=== PATIENT | male | born 1975 | race Caucasian/White ===

== ENCOUNTER → 2016-08-09 | Outpatient (REF) | payer OTHER ==
[~2016-08-09] MED LIST: BACL10TA PO; CALC500C16 PO; MAPA325T2 PO; NICO21PAT TD; PANT40TA2 PO; PRED20TAB PO
[2016-08-09 12:37] LABS: VITAMIN B12 LEVEL 707 PG/ML
[2016-08-09 12:38] LABS: FOLATE 8.1 NG/ML
[2016-08-09 13:05] LABS: ALBUMIN 4.1 GM/DL (3.2-5.2); ALBUMIN/GLOBULIN RATIO 1.46 (1.00-1.93); ALKALINE PHOSPHATASE 57 U/L (45-117); ALT/SGPT 35 U/L (12-78); ANION GAP 8 MEQ/L (8-16); AST/SGOT 18 U/L (15-37); BILIRUBIN,TOTAL 0.5 MG/DL (0.2-1.0); BLOOD UREA NITROGEN 18 MG/DL (7-18); CALCIUM LEVEL 8.9 MG/DL (8.5-10.1); CARBON DIOXIDE LEVEL 26 MEQ/L (21-32); CHLORIDE LEVEL 107 MEQ/L (98-107); CREATININE FOR GFR 1.01 MG/DL (0.70-1.30); GLOMERULAR FILTRATION RATE > 60.0 (>60); GLUCOSE, FASTING 92 MG/DL (70-105); POTASSIUM SERUM 4.4 MEQ/L (3.5-5.1); SODIUM LEVEL 141 MEQ/L (136-145); TOTAL PROTEIN 6.9 GM/DL (6.4-8.2)
[2016-08-09 13:12] LABS: BASO % 0.3 % (0.0-1.0); EOS # 0.3 K/mm3 (0.0-0.50); EOS % 2.8 % (0.0-3.0); LARGE UNSTAINED CELL # 0.1 K/mm3 (0.0-0.4); LARGE UNSTAINED CELL % 0.9 % (0.0-4.0); LYMPH # 1.3 K/mm3 (1.5-4.5); LYMPH % 11.3 % (24.0-44.0); MEAN CORPUSCULAR HEMOGLOBIN 31.6 pg (27.0-33.0); MEAN CORPUSCULAR HGB CONC 34.6 g/dl (32.0-36.5); MEAN CORPUSCULAR VOLUME 91.5 fl (80.0-96.0); MONO # 0.6 K/mm3 (0.0-0.8); MONO % 5.3 % (0.0-5.0); NEUTROPHILS # 9.1 K/mm3 (1.8-7.7); NEUTROPHILS % 79.4 % (36.0-66.0); PLATELET COUNT, AUTOMATED 258 k/mm3 (150-450); RED CELL DISTRIBUTION WIDTH 12.5 % (11.5-14.5); WHITE BLOOD COUNT 11.4 K/mm3 (4.0-10.0)
== END ==
LOC: M LABNEURO 11:48
PROVIDERS: ATTEND Psychiatry & Neurology Neurology
DX: G35 Multiple sclerosis (principal)

== ENCOUNTER → 2017-03-14 | Outpatient (REF) | payer OTHER ==
[~2017-03-14] MED LIST changes: -BACL10TA PO; +BACL1TAB8 PO
[2017-03-14 17:40] LABS: BASO # 0.1 10^3/uL (0.0-0.2); BASO % 0.6 % (0.0-1.0); EOS # 0.3 10^3/uL (0.0-0.50); EOS % 4.3 % (0.0-3.0); IMMATURE GRANULOCYTE % 0.9 % (0-0); LYMPH # 1.7 10^3/uL (1.5-4.5); LYMPH % 21.1 % (24.0-44.0); MEAN CORPUSCULAR HEMOGLOBIN 31.1 pg (27.0-33.0); MEAN CORPUSCULAR HGB CONC 33.4 g/dl (32.0-36.5); MONO # 0.5 10^3/uL (0.0-0.8); MONO % 6.2 % (0.0-5.0); NEUTROPHILS # 5.3 10^3/uL (1.8-7.7); NEUTROPHILS % 66.9 % (36.0-66.0); PLATELET COUNT, AUTOMATED 268 10^3/uL (150-450); WHITE BLOOD COUNT 7.9 10^3/uL (4.0-10.0)
[2017-03-14 19:30] LABS: ALBUMIN 3.9 GM/DL (3.2-5.2); ALBUMIN/GLOBULIN RATIO 1.39 (1.00-1.93); ALKALINE PHOSPHATASE 84 U/L (45-117); ALT/SGPT 41 U/L (12-78); ANION GAP 5 MEQ/L (8-16); AST/SGOT 19 U/L (15-37); BILIRUBIN,TOTAL 0.4 MG/DL (0.2-1.0); BLOOD UREA NITROGEN 12 MG/DL (7-18); CARBON DIOXIDE LEVEL 27 MEQ/L (21-32); CHLORIDE LEVEL 109 MEQ/L (98-107); CREATININE FOR GFR 0.93 MG/DL (0.70-1.30); GLOMERULAR FILTRATION RATE > 60.0 (>60); GLUCOSE, FASTING 102 MG/DL (70-105); POTASSIUM SERUM 3.9 MEQ/L (3.5-5.1); SODIUM LEVEL 141 MEQ/L (136-145); TOTAL PROTEIN 6.7 GM/DL (6.4-8.2)
== END ==
LOC: M LABNEURO 11:48
PROVIDERS: ATTEND Psychiatry & Neurology Neurology
DX: G35 Multiple sclerosis (principal)

== ENCOUNTER → 2017-09-11 | Outpatient (REF) | payer OTHER ==
[2017-09-11 18:23] LABS: BASO # 0.1 10^3/uL (0.0-0.2); BASO % 0.9 % (0.0-1.0); EOS # 0.3 10^3/uL (0.0-0.50); EOS % 5.5 % (0.0-3.0); HEMATOCRIT 46.2 % (42.0-52.0); HEMOGLOBIN 15.6 g/dl (13.5-17.5); IMMATURE GRANULOCYTE % 0.5 % (0-3.0); LYMPH # 1.8 10^3/uL (1.5-4.5); LYMPH % 30.8 % (24.0-44.0); MEAN CORPUSCULAR HEMOGLOBIN 31.3 pg (27.0-33.0); MEAN CORPUSCULAR HGB CONC 33.8 g/dl (32.0-36.5); MEAN CORPUSCULAR VOLUME 92.8 fl (80.0-96.0); MONO # 0.5 10^3/uL (0.0-0.8); MONO % 8.3 % (0.0-5.0); NEUTROPHILS # 3.1 10^3/uL (1.8-7.7); PLATELET COUNT, AUTOMATED 276 10^3/uL (150-450); RED BLOOD COUNT 4.98 10^6/uL (4.30-6.10); RED CELL DISTRIBUTION WIDTH 12.4 % (11.5-14.5); WHITE BLOOD COUNT 5.8 10^3/uL (4.0-10.0)
[2017-09-11 18:44] LABS: ALBUMIN 4.2 GM/DL (3.2-5.2); ALKALINE PHOSPHATASE 72 U/L (45-117); ALT/SGPT 40 U/L (12-78); ANION GAP 4 MEQ/L (8-16); AST/SGOT 20 U/L (7-37); BILIRUBIN,TOTAL 0.5 MG/DL (0.2-1.0); BLOOD UREA NITROGEN 13 MG/DL (7-18); CALCIUM LEVEL 8.8 MG/DL (8.5-10.1); CARBON DIOXIDE LEVEL 29 MEQ/L (21-32); CHLORIDE LEVEL 109 MEQ/L (98-107); CREATININE FOR GFR 0.98 MG/DL (0.70-1.30); GLOMERULAR FILTRATION RATE > 60.0 (>60); GLUCOSE, FASTING 75 MG/DL (70-100); POTASSIUM SERUM 4.2 MEQ/L (3.5-5.1); SODIUM LEVEL 142 MEQ/L (136-145); TOTAL PROTEIN 7.2 GM/DL (6.4-8.2); VITAMIN B12 LEVEL 535 PG/ML
[2017-09-11 18:45] LABS: FOLATE 12.2 NG/ML
== END ==
LOC: M LABNEURO 11:59
DX: G35 Multiple sclerosis (principal)

== ENCOUNTER → 2018-02-15 | Outpatient (REF) | payer OTHER ==
[2018-02-15 18:32] LABS: BASO # 0.1 10^3/uL (0.0-0.2); BASO % 0.5 % (0.0-1.0); EOS # 0.4 10^3/uL (0.0-0.50); EOS % 2.9 % (0.0-3.0); HEMATOCRIT 45.3 % (42.0-52.0); HEMOGLOBIN 15.3 g/dl (13.5-17.5); IMMATURE GRANULOCYTE % 0.5 % (0-3.0); LYMPH # 2.4 10^3/uL (1.5-4.5); LYMPH % 17.9 % (24.0-44.0); MEAN CORPUSCULAR HEMOGLOBIN 31.1 pg (27.0-33.0); MEAN CORPUSCULAR HGB CONC 33.8 g/dl (32.0-36.5); MEAN CORPUSCULAR VOLUME 92.1 fl (80.0-96.0); MONO # 1.1 10^3/uL (0.0-0.8); MONO % 8.1 % (0.0-5.0); NEUTROPHILS # 9.3 10^3/uL (1.8-7.7); NEUTROPHILS % 70.1 % (36.0-66.0); PLATELET COUNT, AUTOMATED 269 10^3/uL (150-450); RED BLOOD COUNT 4.92 10^6/uL (4.30-6.10); RED CELL DISTRIBUTION WIDTH 12.3 % (11.5-14.5); WHITE BLOOD COUNT 13.3 10^3/uL (4.0-10.0)
== END ==
LOC: M SFHCPLAZ 15:29
DX: R10.31 Right lower quadrant pain (principal)

== ENCOUNTER 2018-02-16 15:36 | Emergency (ER) | payer OTHER ==
[2018-02-16] MEDS: NS 1,000 ML IV (17:14)
[2018-02-16 17:20] LABS: BASO # 0.1 10^3/uL (0.0-0.2); BASO % 0.6 % (0.0-1.0); EOS # 0.3 10^3/uL (0.0-0.50); EOS % 3.6 % (0.0-3.0); HEMATOCRIT 45.9 % (42.0-52.0); HEMOGLOBIN 15.6 g/dl (13.5-17.5); IMMATURE GRANULOCYTE % 0.5 % (0-3.0); LYMPH # 2.2 10^3/uL (1.5-4.5); LYMPH % 27.4 % (24.0-44.0); MEAN CORPUSCULAR HEMOGLOBIN 31.4 pg (27.0-33.0); MEAN CORPUSCULAR VOLUME 92.4 fl (80.0-96.0); MONO # 0.8 10^3/uL (0.0-0.8); MONO % 10.2 % (0.0-5.0); NEUTROPHILS # 4.7 10^3/uL (1.8-7.7); NEUTROPHILS % 57.7 % (36.0-66.0); PLATELET COUNT, AUTOMATED 248 10^3/uL (150-450); RED BLOOD COUNT 4.97 10^6/uL (4.30-6.10); RED CELL DISTRIBUTION WIDTH 12.2 % (11.5-14.5); WHITE BLOOD COUNT 8.1 10^3/uL (4.0-10.0)
[2018-02-16 17:45] LABS: ALBUMIN 3.9 GM/DL (3.2-5.2); ALBUMIN/GLOBULIN RATIO 1.26 (1.00-1.93); ALKALINE PHOSPHATASE 65 U/L (45-117); ALT/SGPT 30 U/L (12-78); ANION GAP 8 MEQ/L (8-16); AST/SGOT 16 U/L (7-37); BILIRUBIN,TOTAL 0.5 MG/DL (0.2-1.0); BLOOD UREA NITROGEN 11 MG/DL (7-18); CALCIUM LEVEL 8.5 MG/DL (8.5-10.1); CARBON DIOXIDE LEVEL 25 MEQ/L (21-32); CHLORIDE LEVEL 105 MEQ/L (98-107); CREATININE FOR GFR 1.04 MG/DL (0.70-1.30); GLOMERULAR FILTRATION RATE > 60.0 (>60); GLUCOSE, FASTING 85 MG/DL (70-100); POTASSIUM SERUM 4.1 MEQ/L (3.5-5.1); SODIUM LEVEL 138 MEQ/L (136-145)
== END 2018-02-16 19:25 | disposition home or self-care (01) ==
LOC: M ED 15:36
DX: K52.9 Noninfective gastroenteritis and colitis, unspecified (principal); R10.9 Unspecified abdominal pain; R51 Headache; K21.9 Gastro-esophageal reflux disease without esophagitis; Z72.0 Tobacco use; Z79.899 Other long term (current) drug therapy
CPT/HCPCS: 80053

== ENCOUNTER → 2018-02-16 | Outpatient (REF) | payer OTHER ==
[2018-02-16 13:09] LABS: ALBUMIN/GLOBULIN RATIO 1.21 (1.00-1.93); ALKALINE PHOSPHATASE 71 U/L (45-117); ALT/SGPT 31 U/L (12-78); AMYLASE 70 U/L (25-115); ANION GAP 9 MEQ/L (8-16); AST/SGOT 20 U/L (7-37); BILIRUBIN,TOTAL 0.6 MG/DL (0.2-1.0); BLOOD UREA NITROGEN 11 MG/DL (7-18); CALCIUM LEVEL 8.4 MG/DL (8.5-10.1); CARBON DIOXIDE LEVEL 28 MEQ/L (21-32); CHLORIDE LEVEL 104 MEQ/L (98-107); CREATININE FOR GFR 1.09 MG/DL (0.70-1.30); GLOMERULAR FILTRATION RATE > 60.0 (>60); GLUCOSE, FASTING 78 MG/DL (70-100); LIPASE 412 U/L (73-393); POTASSIUM SERUM 4.4 MEQ/L (3.5-5.1); SODIUM LEVEL 141 MEQ/L (136-145); TOTAL PROTEIN 7.3 GM/DL (6.4-8.2)
== END ==
LOC: M SFHCPLAZ 09:57 → M SFHCADAM 09:59
DX: R10.31 Right lower quadrant pain (principal)

== ENCOUNTER → 2018-02-16 | Outpatient (CLI) | payer OTHER ==
[~2018-02-16] MED LIST changes: -BACL1TAB8 PO; -CALC500C16 PO; +GASTROGRAFIN SOLUTION 30ML (Q9963) As Ordered; +ISOVUE-370 76% 100ML VIAL (Q9967) As Ordered; -MAPA325T2 PO; -NICO21PAT TD; -PANT40TA2 PO; -PRED20TAB PO
== END ==
LOC: M RAD 12:19
DX: R10.31 Right lower quadrant pain (principal)
CPT/HCPCS: Q9963

== ENCOUNTER → 2018-02-21 | Outpatient (REF) | payer OTHER ==
[2018-02-21 17:52] LABS: BASO # 0.1 10^3/uL (0.0-0.2); BASO % 0.6 % (0.0-1.0); EOS # 0.4 10^3/uL (0.0-0.50); EOS % 4.4 % (0.0-3.0); HEMATOCRIT 42.4 % (42.0-52.0); HEMOGLOBIN 14.5 g/dl (13.5-17.5); IMMATURE GRANULOCYTE % 0.6 % (0-3.0); LYMPH # 2.5 10^3/uL (1.5-4.5); LYMPH % 26.5 % (24.0-44.0); MEAN CORPUSCULAR HEMOGLOBIN 31.5 pg (27.0-33.0); MEAN CORPUSCULAR HGB CONC 34.2 g/dl (32.0-36.5); MONO # 0.7 10^3/uL (0.0-0.8); MONO % 7.7 % (0.0-5.0); NEUTROPHILS # 5.6 10^3/uL (1.8-7.7); NEUTROPHILS % 60.2 % (36.0-66.0); PLATELET COUNT, AUTOMATED 289 10^3/uL (150-450); RED BLOOD COUNT 4.61 10^6/uL (4.30-6.10); RED CELL DISTRIBUTION WIDTH 12.3 % (11.5-14.5); WHITE BLOOD COUNT 9.3 10^3/uL (4.0-10.0)
== END ==
LOC: M SFHCPLAZ 15:30
DX: K35.3 Acute appendicitis with localized peritonitis (principal)

== ENCOUNTER → 2018-06-08 | Outpatient (REF) | payer MEDICARE, OTHER ==
[~2018-06-08] MED LIST changes: +BACL1TAB8 PO; +CALC500C16 PO; +CIPR-249 PO; +FLAG500T PO; -GASTROGRAFIN SOLUTION 30ML (Q9963) As Ordered; -ISOVUE-370 76% 100ML VIAL (Q9967) As Ordered; +MAPA325T2 PO; +NICO21PAT TD; +PANT40TA3 PO; +PRED20TAB PO
== END ==
LOC: M SMT 17:22
PROVIDERS: ATTEND Dermatology
DX: C44.321 Squamous cell carcinoma of skin of nose (principal); L72.3 Sebaceous cyst
CPT/HCPCS: 11102; 11441; 12051; 88304; 88305; G0463

== ENCOUNTER → 2018-09-26 | Outpatient (REF) | payer MEDICARE, OTHER ==
[~2018-09-26] MED LIST changes: +NICO21DI3 TD; -NICO21PAT TD
[2018-09-26 15:26] LABS: BASO # 0.1 10^3/uL (0.0-0.2); BASO % 0.9 % (0.0-1.0); EOS # 0.4 10^3/uL (0.0-0.50); EOS % 5.7 % (0.0-3.0); HEMATOCRIT 45.8 % (42.0-52.0); HEMOGLOBIN 15.4 g/dl (13.5-17.5); LYMPH % 29.8 % (24.0-44.0); MEAN CORPUSCULAR HEMOGLOBIN 31.5 pg (27.0-33.0); MEAN CORPUSCULAR HGB CONC 33.6 g/dl (32.0-36.5); MEAN CORPUSCULAR VOLUME 93.7 fl (80.0-96.0); MONO # 0.4 10^3/uL (0.0-0.8); MONO % 5.4 % (0.0-5.0); NEUTROPHILS # 3.9 10^3/uL (1.8-7.7); NEUTROPHILS % 57.8 % (36.0-66.0); PLATELET COUNT, AUTOMATED 285 10^3/uL (150-450); RED BLOOD COUNT 4.89 10^6/uL (4.30-6.10); WHITE BLOOD COUNT 6.8 10^3/uL (4.0-10.0)
[2018-09-26 15:36] LABS: ALBUMIN 3.9 GM/DL (3.2-5.2); ALT/SGPT 39 U/L (12-78); BILIRUBIN,TOTAL 0.4 MG/DL (0.2-1.0); BLOOD UREA NITROGEN 13 MG/DL (7-18); CALCIUM LEVEL 8.6 MG/DL (8.5-10.1); CARBON DIOXIDE LEVEL 28 MEQ/L (21-32); CHLORIDE LEVEL 110 MEQ/L (98-107); CREATININE FOR GFR 0.98 MG/DL (0.70-1.30); GLOMERULAR FILTRATION RATE > 60.0 (>60); GLUCOSE, FASTING 104 MG/DL (70-100); POTASSIUM SERUM 4.6 MEQ/L (3.5-5.1); SODIUM LEVEL 141 MEQ/L (136-145); TOTAL PROTEIN 7.1 GM/DL (6.4-8.2)
[2018-09-26 15:58] LABS: HEPATITIS B SURFACE ANTIBODY NEGATIVE (POSITIVE)
== END ==
LOC: M LABNEURO 11:29
PROVIDERS: ATTEND Psychiatry & Neurology Neurology
DX: G35 Multiple sclerosis (principal)

== ENCOUNTER 2018-10-04 09:37 | Outpatient (CLI) | payer MEDICARE, OTHER ==
[~2018-10-04] VITALS: Ht 180.3 cm; Wt 111.3 kg
[2018-10-04] VITALS (7 sets, daily range): BP systolic 97–122; BP diastolic 55–79
[2018-10-04] MEDS ORDERED: diphenhydrAMINE 25 MG CAP PO ONE (09:45)
[2018-10-04] MEDS ORDERED: ACETAMINOPHEN TAB 650MG DOSE (2X325MG) PO ONE (09:45)
[2018-10-04] MEDS ORDERED: methylPREDNISolone INJ 125 MG/2 ML VIAL (J2930) IV ONE (09:45)
[2018-10-04] MEDS ORDERED: 0.22 MICRON FILTER (METHACHOLINE/OCREVUS) XX ONE (10:00)
[2018-10-04] MEDS ORDERED: OCRELIZUMAB 600 MG in NS 500 ML IV ONE (10:00)
== END 2018-10-04 14:30 | disposition home or self-care (01) ==
LOC: M INFU 09:37
PROVIDERS: ATTEND Psychiatry & Neurology Neurology
DX: G35 Multiple sclerosis (principal)
CPT/HCPCS: 96375; 96413; 96415; J2350; J2930

== ENCOUNTER → 2019-01-16 | Outpatient (REF) | payer MEDICARE ==
[2019-01-16 13:58] LABS: BASO # 0.1 10^3/uL (0.0-0.2); EOS # 0.3 10^3/uL (0.0-0.50); EOS % 4.7 % (0.0-3.0); HEMATOCRIT 47.2 % (42.0-52.0); HEMOGLOBIN 15.9 g/dl (13.5-17.5); LYMPH # 1.7 10^3/uL (1.5-4.5); LYMPH % 25.1 % (24.0-44.0); MEAN CORPUSCULAR HEMOGLOBIN 31.8 pg (27.0-33.0); MEAN CORPUSCULAR HGB CONC 33.7 g/dl (32.0-36.5); MEAN CORPUSCULAR VOLUME 94.4 fl (80.0-96.0); MONO # 0.6 10^3/uL (0.0-0.8); MONO % 9.4 % (0.0-5.0); NEUTROPHILS % 59.2 % (36.0-66.0); PLATELET COUNT, AUTOMATED 286 10^3/uL (150-450); WHITE BLOOD COUNT 6.8 10^3/uL (4.0-10.0)
[2019-01-16 14:27] LABS: ALT/SGPT 31 U/L (12-78); BILIRUBIN,TOTAL 0.4 MG/DL (0.2-1.0); BLOOD UREA NITROGEN 15 MG/DL (7-18); CARBON DIOXIDE LEVEL 30 MEQ/L (21-32); CHLORIDE LEVEL 105 MEQ/L (98-107); CREATININE FOR GFR 1.14 MG/DL (0.70-1.30); GLOMERULAR FILTRATION RATE > 60.0 (>60); GLUCOSE, FASTING 85 MG/DL (70-100); POTASSIUM SERUM 4.2 MEQ/L (3.5-5.1); SODIUM LEVEL 141 MEQ/L (136-145); TOTAL PROTEIN 6.7 GM/DL (6.4-8.2)
[2019-01-16 14:36] LABS: APPEARANCE, URINE CLEAR (CLEAR); BACTERIA, URINE AUTO NEGATIVE (NEGATIVE); BILIRUBIN, URINE AUTO NEGATIVE (NEGATIVE); BLOOD, URINE BLOOD NEGATIVE (NEGATIVE); COLOR, URINE YELLOW (YELLOW); GLUCOSE, URINE (UA) AUTO NEGATIVE (NEGATIVE); KETONE, URINE AUTO NEGATIVE (NEGATIVE); LEUKOCYTE ESTERASE, URINE AUTO NEGATIVE (NEGATIVE); MUCUS, URINE SMALL (NEGATIVE); NITRITE, URINE AUTO NEGATIVE (NEGATIVE); PROTEIN, URINE AUTO NEGATIVE (NEGATIVE); RBC, URINE AUTO 1 /HPF (0-3); SPECIFIC GRAVITY URINE AUTO 1.019 (1.002-1.035); SQUAMOUS EPITHELIAL CELL UR AU 1 /HPF (0-6); UROBILINOGEN, URINE AUTO 0.2 mg/dL (0.0-2.0); WBC, URINE AUTO 2 /HPF (0-3)
== END ==
LOC: M LABNEURO 11:03
PROVIDERS: ATTEND Psychiatry & Neurology Neurology
DX: G35 Multiple sclerosis (principal); Z79.899 Other long term (current) drug therapy

== ENCOUNTER 2019-04-03 07:51 | Outpatient (CLI) | payer MEDICARE ==
[2019-04-03] VITALS (7 sets, daily range): BP systolic 109–127; BP diastolic 71–77
[~2019-04-03] VITALS: Ht 180.3 cm; Wt 124.5 kg
[2019-04-03] MEDS ORDERED: diphenhydrAMINE 25 MG CAP PO ONE (08:00)
[2019-04-03] MEDS ORDERED: ACETAMINOPHEN TAB 650MG DOSE (2X325MG) PO ONE (08:00)
[2019-04-03] MEDS ORDERED: 0.22 MICRON FILTER (METHACHOLINE/OCREVUS) XX ONE (08:00)
[2019-04-03] MEDS ORDERED: methylPREDNISolone INJ 125 MG/2 ML VIAL (J2930) IV ONE (08:00)
[2019-04-03] MEDS ORDERED: OCRELIZUMAB 600 MG in NS 500 ML IV ONE (08:15)
== END 2019-04-03 12:30 | disposition home or self-care (01) ==
LOC: M INFU 07:51
PROVIDERS: ATTEND Psychiatry & Neurology Neurology
DX: G35 Multiple sclerosis (principal)
CPT/HCPCS: 96365; 96366; 96375; J2350; J2930

== ENCOUNTER 2019-04-13 17:09 | Day surgery (SDC) | payer MEDICAID, MEDICARE ==
[~2019-04-13] VITALS: Ht 180.3 cm; Wt 114.3 kg
[2019-04-13] MEDS: KCL 20MEQ IN D5/0.45NS 1000ML 1,000 ML IV SCH (01:00)
[2019-04-13] MEDS ORDERED: OCRE300I IV (17:18)
[2019-04-13 17:38] LABS: BASO # 0.1 10^3/uL (0.0-0.2); BASO % 0.3 % (0.0-1.0); HEMATOCRIT 46.9 % (42.0-52.0); HEMOGLOBIN 15.6 g/dl (13.5-17.5); LYMPH # 0.9 10^3/uL (1.5-5.0); LYMPH % 3.7 % (24.0-44.0); MEAN CORPUSCULAR HEMOGLOBIN 31.2 pg (27.0-33.0); MEAN CORPUSCULAR HGB CONC 33.3 g/dl (32.0-36.5); MEAN CORPUSCULAR VOLUME 93.8 fl (80.0-96.0); MONO # 1.1 10^3/uL (0.0-0.8); MONO % 4.5 % (0.0-5.0); NEUTROPHILS # 22.3 10^3/uL (1.5-8.5); NEUTROPHILS % 90.7 % (36.0-66.0); PLATELET COUNT, AUTOMATED 320 10^3/uL (150-450); WHITE BLOOD COUNT 24.6 10^3/uL (4.0-10.0)
[2019-04-13] MEDS ORDERED: NS 1,000 ML IV ONE (18:15)
[2019-04-13] MEDS ORDERED: MORPHINE 4 MG/ML 1ML VIAL/SYRINGE (J2270) IV ONE ×2 (18:15→20:30)
[2019-04-13] MEDS ORDERED: ONDANSETRON 4MG/2ML VIAL (J2405) IV ONE (18:15)
[2019-04-13 18:18] LABS: ALBUMIN 4.1 GM/DL (3.2-5.2); ALT/SGPT 52 U/L (12-78); BILIRUBIN,DIRECT 0.2 MG/DL (0.0-0.2); BILIRUBIN,TOTAL 0.6 MG/DL (0.2-1.0); BLOOD UREA NITROGEN 13 MG/DL (7-18); CALCIUM LEVEL 9.5 MG/DL (8.5-10.1); CARBON DIOXIDE LEVEL 27 MEQ/L (21-32); CHLORIDE LEVEL 106 MEQ/L (98-107); CREATININE FOR GFR 1.18 MG/DL (0.70-1.30); GLOMERULAR FILTRATION RATE > 60.0 (>60); GLUCOSE, FASTING 110 MG/DL (70-100); LIPASE 89 U/L (73-393); POTASSIUM SERUM 4.1 MEQ/L (3.5-5.1); SODIUM LEVEL 140 MEQ/L (136-145); TOTAL PROTEIN 7.3 GM/DL (6.4-8.2)
[2019-04-13] MEDS ORDERED: ISOVUE-370 76% 100ML VIAL (Q9967) As Ordered ONE (18:26)
--- NOTE | 2019-04-13 19:23 | REPVR ---
PROCEDURE INFORMATION: Exam: CT Abdomen And Pelvis With Contrast Exam date and time: 04/13/2019 6:49 PM Clinical history: 43 years old, male; Abdominal pain; Localized; Right lower quadrant (rlq); Additional info: Rlq pain with n/v TECHNIQUE: Imaging protocol: Computed tomography of the abdomen and pelvis with intravenous contrast. Radiation optimization: All CT scans at this facility use at least one of these dose optimization techniques: automated exposure control; mA and/or kV adjustment per patient size (includes targeted exams where dose is matched to clinical indication); or iterative reconstruction. Contrast material: ISOVUE 370; Contrast volume: 100 ml; Contrast route: IV; COMPARISON: CT ABD PELVIS WITH CONTRAST 02/16/2018 2:11 PM FINDINGS: Liver: There is a diffuse decrease in hepatic parenchymal density, consistent with fatty infiltration. Gallbladder and bile ducts: Normal. No calcified stones. No ductal dilation. Pancreas: Normal. No ductal dilation. Spleen: Normal. No splenomegaly. Adrenals: Normal. No mass. Kidneys and ureters: 10 mm simple cyst left kidney. Stomach and bowel: Mild diffuse diverticulosis coli. No diverticulitis. Appendix: The appendix demonstrates diffuse distention, consistent with acute appendicitis. No CT evidence of acute rupture or abscess. Appendicolith demonstrated in the distal appendix. Intraperitoneal space: Unremarkable. No free air. No significant fluid collection. Vasculature: The aorta demonstrates mild atherosclerotic calcification. Lymph nodes: Unremarkable. No enlarged lymph nodes. Bladder: Unremarkable as visualized. Reproductive: The prostate gland demonstrates mild hyperplasia. Bones/joints: Unremarkable. No acute fracture. Soft tissues: Unremarkable. IMPRESSION: 1. There is a diffuse decrease in hepatic parenchymal density, consistent with fatty infiltration. 2. Acute appendicitis. 3. Mild prostatic hyperplasia. 4. Mild diffuse diverticulosis coli. No diverticulitis. A critical call has been made to speak with the ordering physician/practitioner. This report will be amended once consultation has occurred. COMMENT: Consistent with the [employer] [place] [employer]'s Incidental Findings Committee Report (J Am Erick Radiol 2010): Unless the patient's specific circumstances suggest otherwise, any liver lesion 0.5 cm or less, any cystic kidney lesion less than 1.0 cm, and/or any adrenal lesion 1.0 cm or less not otherwise characterized in this report as possessing suspicious or indeterminate imaging features is/are highly likely to be benign and do not require follow-up imaging or biopsy. Electronically signed by: Geovanni Lopez 04/13/2019 19:23:35 PM
[2019-04-13] MEDS ORDERED: BUPIVACAINE/EPIN 0.25% 30 ML VIAL As Ordered ONE (19:57)
[2019-04-13] MEDS ORDERED: OMEP-221 PO (20:13)
[2019-04-13] MEDS ORDERED: MORPHINE 4 MG/ML 1ML VIAL/SYRINGE (J2270) As Ordered ONE (20:40)
[2019-04-13] MEDS ORDERED: ZOSYN 3.375 GM VIAL (J2543) As Ordered ONE (22:39)
[2019-04-13] MEDS ORDERED: ONDANSETRON 4MG/2ML VIAL (J2405) As Ordered ONE (22:53)
[2019-04-13] MEDS ORDERED: MIDAZOLAM INJ 2 MG/2 ML VIAL (J2250) As Ordered ONE (22:53)
[2019-04-13] MEDS ORDERED: METOCLOPRAMIDE INJ 10MG/2ML VIAL (J2765) As Ordered ONE (22:53)
[2019-04-13] MEDS ORDERED: PROPOFOL 200 MG/20 ML VIAL As Ordered ONE (22:53)
[2019-04-13] MEDS ORDERED: LIDOCAINE 2% INJ 100 MG/5 ML SDV (FOR ANES.) As Ordered ONE (22:53)
[2019-04-13] MEDS ORDERED: fentaNYL 100 MCG/2 ML INJECTION (J3010) As Ordered ONE (22:53)
[2019-04-13] MEDS ORDERED: SUGAMMADEX SODIUM 500 MG/5 ML VIAL (BRIDION) As Ordered ONE (22:53)
[2019-04-13] MEDS ORDERED: dexameTHASONE 4 MG/ML 1ML VIAL (J1100) As Ordered ONE (22:53)
[2019-04-13] MEDS ORDERED: ROCURONIUM BROMIDE 50 MG/5 ML VIAL As Ordered ONE (22:53)
[2019-04-13] MEDS ORDERED: ACETAMINOPHEN 1000MG 100ML IV BTL (OFIRMEV) (J0131 PER 10MG) As Ordered ONE (22:53)
[2019-04-13] MEDS ORDERED: KETOROLAC 60 MG/2 ML VIAL (J1885) As Ordered ONE (22:53)
[2019-04-13] MEDS ORDERED: ONDANSETRON 4MG/2ML VIAL (J2405) IV PRN ×2 (23:00→23:45)
[2019-04-13] MEDS ORDERED: MORPHINE 2 MG/ML 1ML VIAL (J2270) IV PRN (23:00)
[2019-04-13] MEDS ORDERED: ACETAMINOPHEN TAB 650MG DOSE (2X325MG) PO PRN (23:00)
[2019-04-13] MEDS ORDERED: NORCO, ANEXSIA 5/325MG TABLET (HYDROcodone/ACETAMINOPHEN) PO PRN (23:00)
[2019-04-13] MEDS ORDERED: fentaNYL 250 MCG/5 ML INJECTION (J3010) As Ordered ONE (23:08)
[2019-04-13] MEDS ORDERED: ESMOLOL INJ 100MG/10ML VIAL As Ordered ONE (23:36)
[2019-04-13] MEDS ORDERED: LR 1,000 ML IV SCH (23:45)
[2019-04-13] MEDS ORDERED: oxyCODONE 5MG TAB PO PRN (23:45)
[2019-04-13] MEDS ORDERED: fentaNYL 100 MCG/2 ML INJECTION (J3010) IV PRN (23:45)
[2019-04-13] MEDS ORDERED: KETOROLAC 30 MG/ML VIAL (J1885) IV PRN (23:45)
[2019-04-14] VITALS (7 sets, daily range): BP systolic 108–143; BP diastolic 58–90
[2019-04-14] MEDS: KCL 20MEQ IN D5/0.45NS 1000ML 1,000 ML IV SCH (07:00)
[2019-04-14 07:02] LABS: HEMATOCRIT 41.8 % (42.0-52.0); MEAN CORPUSCULAR HEMOGLOBIN 31.3 pg (27.0-33.0); MEAN CORPUSCULAR HGB CONC 33.5 g/dl (32.0-36.5); MEAN CORPUSCULAR VOLUME 93.5 fl (80.0-96.0); PLATELET COUNT, AUTOMATED 268 10^3/uL (150-450); RED BLOOD COUNT 4.47 10^6/uL (4.30-6.10); WHITE BLOOD COUNT 22.9 10^3/uL (4.0-10.0)
[2019-04-14] MEDS ORDERED: SENOKOT S TAB PO SCH (09:00)
[2019-04-14] MEDS ORDERED: PANTOPRAZOLE 40MG TAB (PROTONIX) PO SCH (09:00)
[2019-04-14] MEDS ORDERED: AUGM875T28 PO (11:46)
--- NOTE | 2019-04-14 13:09 | HPE ---
DATE OF ADMISSION: 04/13/2019 CHIEF COMPLAINT: Right lower quadrant pain. HISTORY OF PRESENT ILLNESS: Patient is 43-year-old male who presents with right lower quadrant pain that started early this morning. The pain got, persistently worse throughout the day. It started on the left side, migrated over towards the right side. He had fevers, chills, nausea, lack of appetite, so to came into the emergency room. In the emergency room (ER), he had an elevated white count of 24.[address] findings suspicious for appendicitis. Therefore, I was called to evaluate. PAST MEDICAL HISTORY: Multiple sclerosis (MS) PAST SURGICAL HISTORY: Testicular torsion. ALLERGIES: None. MEDICATIONS: Please see medical record. SOCIAL HISTORY: He smokes a pack a day. He denies drug, alcohol abuse. FAMILY HISTORY: Noncontributory. REVIEW OF SYSTEMS: Per positives and negative in the history of present illness (HPI). PHYSICAL EXAMINATION: GENERAL: Alert and oriented times three. No acute stress. VITAL SIGNS: Temperature 99.4, pulse 58, respirations 18, blood pressure 145/87, pulse oximetry 97% room air. HEENT: Pupils equally round and reactive to light and accommodation. HEART: S1, S2. Regular rate and rhythm. LUNGS: Clear to auscultation bilaterally. ABDOMEN: Soft, tender palpation in the right lower quadrant with localized guarding. No rigidity. EXTREMITIES: No clubbing, cyanosis or edema. LABORATORY DATA White count 24.6, hemoglobin 15.6, platelets 320. Potassium 4.1, creatinine 1.18. IMAGING STUDIES: CT abdomen, pelvis was done that showed a dilated appendix with diffuse distension consistent with acute appendicitis. No evidence of rupture or abscess. There is an appendicolith demonstrated the distal appendix. ASSESSMENT AND PLAN: The patient is a 43-year-old male with acute appendicitis. RECOMMENDATIONS: Proceed with laparoscopic appendectomy. Postoperatively, he will be kept on intravenous (IV) antibiotics. We will repeat his labs in the morning. If they are improved, we will plan for discharge home. If his white count still significantly high, then I will keep him on IV antibiotics for another 24 hours, since he is slightly immunocompromised from his MS and then plan for discharge likely early on Monday morning. All of his questions were answered.
[2019-04-15] MEDS ORDERED: PIPERACILLIN/TAZOBACTAM SOD 3.375 GM in D5W MINI-BAG PLUS 50 ML IV SCH (05:00)
[2019-04-15] MEDS ORDERED: KETOROLAC 30 MG/ML VIAL (J1885) IV PRN (06:00)
--- NOTE | 2019-04-15 12:19 | RO ---
DATE OF PROCEDURE: PREOPERATIVE DIAGNOSIS: Acute appendicitis. POSTOPERATIVE DIAGNOSIS: Acute appendicitis. PROCEDURE: Laparoscopic appendectomy. SURGEON: Dr. Addison OLEOMARGARINE MAKER: None. ANESTHESIA: General. Estimated blood loss: 5. COMPLICATIONS: None. INDICATIONS FOR PROCEDURE: The patient is a 43-year-old male, who presents with right lower quadrant pain and found to have acute appendicitis on CT. Recommendation was to proceed with a laparoscopic appendectomy. Risks, benefits of the procedure not limited but including bleeding, infection, hernia formation, damage to surrounding structures, and need for further surgery were discussed in detail with the patient. Informed consent was obtained and procedure was planned. DESCRIPTION OF PROCEDURE: Patient brought back to operating room #1. After sufficient sedation, the abdomen was sterilely prepped and draped. Next, a time-out was done to confirm proper patient and proper procedure. Following that a 5 mm incision made in the left upper quadrant, Veress needle inserted and the abdomen was insufflated to 50 mmHg. The Veress needle was then removed and a 5 mm Optiview port was used to gain access to the abdomen. Once the abdomen was entered another 8 mm port was placed supraumbilically in the midline, a 5 mm port suprapubically in the midline. The right lower quadrant was identified. The appendix was elevated. Mesoappendix was taken down to the base of the appendix using the Enseal. After doing so, the appendix was ligated with two PDS Endoloops and then amputated using the Enseal. The appendix was then placed inside of a 5 mm Endo Catch bag and brought out through the 8 mm port site. Fascia had to be stretched to remove the appendix. After doing so, the fascia was closed with #0 Vicryl suture in a Venkat-[place] needle. Once that was completed, the abdomen was examined to confirm hemostasis. The abdomen was then desufflated. Skin incisions were closed with #4-0 Vicryl subcuticular sutures. The abdomen cleaned and dried. Steri-Strips, 4 x 4 and tape were applied thus ending procedure.
--- NOTE | 2019-04-15 16:23 | DSES ---
DATE OF ADMISSION: 04/13/2019 DATE OF DISCHARGE: 04/14/2019 ADMISSION DIAGNOSIS: Appendicitis. DISCHARGE DIAGNOSIS: Appendicitis. HOSPITAL COURSE: The patient is a 43-year-old male who presented in the evening with acute appendicitis. He was taken for urgent laparoscopic appendectomy. Postoperatively, he did well, had minimal pain. No fevers. He was ambulating in the halls, urinating okay and tolerating diet. He was very anxious to go home. His white count on admission was 24.6 and today it is down to 22.9; however, his surgery was uneventful. No real concerns for any infection. I discussed keeping him an extra 24 hours for some more IV antibiotics; however, he feels so well he is willing to go home and will return if he has any increase in pain or fevers. PLAN: Discharge him home with 7 days of Augmentin. He does not require any pain control. He will be able to shower starting tomorrow. No baths for 5 days. No lifting more than 20 pounds or 2 weeks and he will follow up with me in the office. All of his questions were answered and he is aware that he is going home early and he will call me if there are any concerns.
== END 2019-04-14 12:00 | disposition home or self-care (01) ==
LOC: M ED 17:09 → M SDC 17:10 → M MS5PR 04-14 00:30 → M SDC 04-14 12:00
PROVIDERS: ATTEND Surgery
DX: K35.80 Unspecified acute appendicitis (principal); K38.8 Other specified diseases of appendix; D72.829 Elevated white blood cell count, unspecified; R11.0 Nausea; G35 Multiple sclerosis; K21.9 Gastro-esophageal reflux disease without esophagitis; F17.210 Nicotine dependence, cigarettes, uncomplicated; Z79.899 Other long term (current) drug therapy
CPT/HCPCS: 36415; 44970; 74177; 80048; 80076; 81001; 83690; 85025; 85027; 88304; 96374; 96375; 96376; 99284; J0131; J1100; J1885; J2250; J2270; J2405; J2765; J3010; Q9967

== ENCOUNTER 2019-09-30 09:47 | Outpatient (CLI) | payer MEDICARE ==
[2019-09-30] VITALS (7 sets, daily range): BP systolic 112–132; BP diastolic 72–82
[~2019-09-30] VITALS: Ht 180.3 cm; Wt 124.5 kg
[~2019-09-30 09:47] MED LIST changes: +ACETAMINOPHEN TAB 650MG DOSE (2X325MG) PO ONE; +AUGM875T28 PO; +OCRE300I IV; +OCRELIZUMAB 600 MG in NS 500 ML IV ONE; +OMEP-221 PO; +diphenhydrAMINE 25MG CAP PO ONE; +methylPREDNISolone INJ 125 MG/2 ML VIAL (J2930) IV ONE
== END 2019-09-30 14:00 | disposition home or self-care (01) ==
LOC: M INFU 09:47
PROVIDERS: ATTEND Psychiatry & Neurology Neurology
DX: G35 Multiple sclerosis (principal)
CPT/HCPCS: 96375; 96413; 96415; J2350; J2930

== ENCOUNTER 2020-03-30 08:59 | Outpatient (CLI) | payer MEDICARE, MEDICAID ==
[~2020-03-30] VITALS: Ht 180.3 cm; Wt 113.6 kg
[2020-03-30] VITALS (8 sets, daily range): BP systolic 105–140; BP diastolic 61–80
[~2020-03-30 08:59] MED LIST changes: -ACETAMINOPHEN TAB 650MG DOSE (2X325MG) PO ONE; -MAPA325T2 PO; +MAPA325T8 PO; -OCRELIZUMAB 600 MG in NS 500 ML IV ONE; +PANT40TA29 PO; -PANT40TA3 PO; -diphenhydrAMINE 25MG CAP PO ONE; -methylPREDNISolone INJ 125 MG/2 ML VIAL (J2930) IV ONE
[2020-03-30] MEDS ORDERED: ACETAMINOPHEN TAB 650MG DOSE (2X325MG) PO ONE (09:00)
[2020-03-30] MEDS ORDERED: methylPREDNISolone 125MG 2ML VIAL IV ONE (09:00)
[2020-03-30] MEDS ORDERED: diphenhydrAMINE 25MG CAP PO ONE (09:00)
[2020-03-30] MEDS ORDERED: OCRELIZUMAB 600 MG in NS 500 ML IV ONE (09:00)
== END 2020-03-30 14:00 | disposition home or self-care (01) ==
LOC: M INFU 08:59
PROVIDERS: ATTEND Psychiatry & Neurology Neurology
DX: G35 Multiple sclerosis (principal)
CPT/HCPCS: 96375; 96413; 96415; J2350; J2930

== ENCOUNTER → 2020-07-07 | Outpatient (CLI) | payer MEDICARE, MEDICAID ==
--- NOTE | 2020-07-07 15:45 | REP ---
INDICATION: TORSION DISTONIA; PAIN. COMPARISON: None. TECHNIQUE: Real-time sonographic evaluation of scrotum and contents performed. FINDINGS: The testicles are normal in size and echotexture, right testicle measuring 4.1 x 1.8 x 2.6 cm left testicle 4.0 x 1.7 x 2.7 cm. There is no evidence of testicular torsion, blood flow is seen in each testicle with duplex Doppler evaluation. No testicular mass is seen. There is a cyst in the head of the right epididymis measuring 8 mm in diameter. There is a small left varicocele with dilated venous structures inferiorly measuring up to 3 mm in diameter. There is a small left hydrocele. IMPRESSION: No testicular mass or torsion. Small left varicocele and hydrocele. <Electronically signed by Remi Ojeda > 07/07/20 [id number]
== END ==
LOC: M RAD 15:01
PROVIDERS: ATTEND Physician Assistant Medical
DX: N43.3 Hydrocele, unspecified (principal); I86.1 Scrotal varices; N50.9 Disorder of male genital organs, unspecified; G24.1 Genetic torsion dystonia
CPT/HCPCS: 76870; 81001; 87086; 93976; G0463

== ENCOUNTER → 2020-07-07 | Outpatient (REF) | payer MEDICARE, MEDICAID ==
[2020-07-07 12:57] LABS: APPEARANCE, URINE CLEAR (CLEAR); BACTERIA, URINE AUTO NEGATIVE (NEGATIVE); BILIRUBIN, URINE AUTO NEGATIVE (NEGATIVE); BLOOD, URINE BLOOD NEGATIVE (NEGATIVE); COLOR, URINE YELLOW (YELLOW); GLUCOSE, URINE (UA) AUTO NEGATIVE (NEGATIVE); KETONE, URINE AUTO NEGATIVE (NEGATIVE); LEUKOCYTE ESTERASE, URINE AUTO NEGATIVE (NEGATIVE); MUCUS, URINE SMALL (NEGATIVE); NITRITE, URINE AUTO NEGATIVE (NEGATIVE); PROTEIN, URINE AUTO NEGATIVE (NEGATIVE); RBC, URINE AUTO 0 /HPF (0-3); SPECIFIC GRAVITY URINE AUTO 1.023 (1.002-1.035); SQUAMOUS EPITHELIAL CELL UR AU 0 /HPF (0-6); UROBILINOGEN, URINE AUTO 0.2 mg/dL (0.0-2.0); WBC, URINE AUTO 1 /HPF (0-3)
== END ==
LOC: M SFHCPLAZ 11:32
PROVIDERS: ATTEND Physician Assistant Medical
DX: G24.1 Genetic torsion dystonia (principal); Z79.899 Other long term (current) drug therapy

== ENCOUNTER 2020-10-06 08:50 | Outpatient (CLI) | payer MEDICARE ==
[~2020-10-06] VITALS: Ht 180.3 cm; Wt 113.6 kg
[2020-10-06] VITALS (8 sets, daily range): BP systolic 118–135; BP diastolic 66–90
[2020-10-06] MEDS ORDERED: methylPREDNISolone 125MG 2ML VIAL IV ONE (09:00)
[2020-10-06] MEDS ORDERED: diphenhydrAMINE 25MG CAP PO ONE (09:00)
[2020-10-06] MEDS ORDERED: ACETAMINOPHEN TAB 650MG DOSE (2X325MG) PO ONE (09:00)
[2020-10-06] MEDS ORDERED: OCRELIZUMAB 600 MG in NS 500 ML IV ONE (09:00)
[2020-10-06] MEDS ORDERED: METH-1165 PO (13:31)
== END 2020-10-06 13:30 | disposition home or self-care (01) ==
LOC: M INFU 08:50
PROVIDERS: ATTEND Psychiatry & Neurology Neurology
DX: G35 Multiple sclerosis (principal)
CPT/HCPCS: 96365; 96366; 96375; J2350; J2930

== ENCOUNTER 2020-12-21 20:51 | Emergency (ER) | payer MEDICARE ==
[~2020-12-21] VITALS: Ht 180.3 cm; Wt 111.4 kg
[~2020-12-21 20:51] MED LIST changes: +METH-1165 PO
[2020-12-22] MEDS ORDERED: NS 1,000 ML IV ONE (00:10)
[2020-12-22] MEDS ORDERED: METHOCARBAMOL 1,000 MG/10 ML VIAL (J2800) IV ONE (00:10)
[2020-12-22] MEDS ORDERED: ONDANSETRON 4MG/2ML VIAL IV ONE (00:10)
[2020-12-22 00:42] LABS: BASO # 0.1 10^3/uL (0.0-0.2); BASO % 0.5 % (0.0-1.0); EOS # 0.1 10^3/uL (0.0-0.5); EOS % 0.6 % (0.0-3.0); HEMATOCRIT 44.9 % (42.0-52.0); HEMOGLOBIN 15.2 g/dl (13.5-17.5); LYMPH # 1.4 10^3/uL (1.5-5.0); LYMPH % 9.5 % (24.0-44.0); MEAN CORPUSCULAR HGB CONC 33.9 g/dl (32.0-36.5); MEAN CORPUSCULAR VOLUME 91.6 fl (80.0-96.0); MONO # 1.4 10^3/uL (0.0-0.8); MONO % 9.3 % (2.0-8.0); NEUTROPHILS # 11.8 10^3/uL (1.5-8.5); PLATELET COUNT, AUTOMATED 430 10^3/uL (150-450); WHITE BLOOD COUNT 14.9 10^3/uL (4.0-10.0)
[2020-12-22 01:00] LABS: ERYTHROCYTE SEDIMENTATION RATE 11 mm/hr (0-15)
[2020-12-22] MEDS ORDERED: diazePAM 10MG/2ML SYRINGE (J3360 PER 5MG) IV ONE (01:50)
[2020-12-22] MEDS ORDERED: KETOROLAC 30 MG/ML 1ML VIAL IV ONE (01:50)
[2020-12-22] MEDS ORDERED: diazePAM 5MG TABLET PO ONE (03:05)
[2020-12-22] MEDS ORDERED: NAPR-837 PO (03:06)
[2020-12-22] MEDS ORDERED: VALI5TAB PO (03:06)
[2020-12-22 03:23] VITALS: BP 105/78
== END 2020-12-22 03:27 | disposition home or self-care (01) ==
LOC: M ED 20:51
DX: D72.829 Elevated white blood cell count, unspecified (principal); M54.2 Cervicalgia; K21.9 Gastro-esophageal reflux disease without esophagitis; R51.9 Headache, unspecified; Z79.899 Other long term (current) drug therapy; F17.210 Nicotine dependence, cigarettes, uncomplicated
CPT/HCPCS: 80047; 85025; 85652; 86140; 96361; 96374; 96375; 99284; J1885; J2405; J2800; J3360

== ENCOUNTER → 2021-01-04 | Outpatient (REF) | payer MEDICARE ==
[~2021-01-04] MED LIST changes: +NAPR-837 PO; +VALI5TAB PO
[2021-01-04 15:20] LABS: APPEARANCE, URINE CLEAR (CLEAR); BACTERIA, URINE AUTO NEGATIVE (NEGATIVE); BILIRUBIN, URINE AUTO NEGATIVE (NEGATIVE); BLOOD, URINE BLOOD 1+ (NEGATIVE); COLOR, URINE YELLOW (YELLOW); GLUCOSE, URINE (UA) AUTO NEGATIVE (NEGATIVE); KETONE, URINE AUTO NEGATIVE (NEGATIVE); LEUKOCYTE ESTERASE, URINE AUTO NEGATIVE (NEGATIVE); MUCUS, URINE SMALL (NEGATIVE); NITRITE, URINE AUTO NEGATIVE (NEGATIVE); PROTEIN, URINE AUTO NEGATIVE (NEGATIVE); RBC, URINE AUTO 1 /HPF (0-3); SPECIFIC GRAVITY URINE AUTO 1.011 (1.002-1.035); SQUAMOUS EPITHELIAL CELL UR AU 0 /HPF (0-6); UROBILINOGEN, URINE AUTO 0.2 mg/dL (0.0-2.0); WBC, URINE AUTO 0 /HPF (0-3)
== END ==
LOC: M LAB REF 14:54
PROVIDERS: ATTEND Psychiatry & Neurology Neurology
DX: R35.0 Frequency of micturition (principal)

== ENCOUNTER 2021-01-11 16:26 | Emergency (ER) | payer MEDICARE ==
[~2021-01-11] VITALS: Ht 180.3 cm; Wt 109.1 kg
[2021-01-11] MEDS ORDERED: NS 500 ML IV ONE (18:15)
[2021-01-11] MEDS ORDERED: KEPP1TAB PO (18:16)
[2021-01-11 18:30] VITALS: BP 122/66
--- NOTE | 2021-01-11 18:33 | REPVR ---
PROCEDURE INFORMATION: Exam: CT Head Without Contrast Exam date and time: 01/11/2021 5:40 PM Age: 45 years old Clinical indication: Injury or trauma; Blunt trauma (contusions or hematomas); Patient HX: PT said 5th seizure in past week. PT said never had seizures prior to that; Additional info: Head banging due to seizure TECHNIQUE: Imaging protocol: Computed tomography of the head without contrast. Radiation optimization: All CT scans at this facility use at least one of these dose optimization techniques: automated exposure control; mA and/or kV adjustment per patient size (includes targeted exams where dose is matched to clinical indication); or iterative reconstruction. COMPARISON: MRI-Brain W/O FOLL BY WITH 11/25/2015 7:43 PM FINDINGS: Brain: No intracranial mass, mass effect or midline shift. No acute intracranial hemorrhage. No CT evidence of acute cortical infarct. Mild decreased attenuation in periventricular/centrum semiovale white matter. Ventricles, cisterns, and sulci are normal in size for age. Paranasal sinuses: Imaged paranasal sinuses are normally aerated. Mastoid air cells: Mastoid air cells and middle ear structures are normally aerated. Orbital cavity: Imaged orbits are unremarkable. Bones/joints: No calvarial fracture or destructive process. Soft tissues: No focal extracranial soft tissue swelling. IMPRESSION: No acute or concerning focal intracranial abnormality. Electronically signed by: Bernard Merchant On 01/11/2021 18:33:31 PM
[2021-01-11 18:53] LABS: ALT/SGPT 35 U/L (12-78); BILIRUBIN,TOTAL 0.4 MG/DL (0.2-1.0); BLOOD UREA NITROGEN 20 MG/DL (7-18); CALCIUM LEVEL 8.4 MG/DL (8.5-10.1); CARBON DIOXIDE LEVEL 28 MEQ/L (21-32); CHLORIDE LEVEL 103 MEQ/L (98-107); CREATININE FOR GFR 0.94 MG/DL (0.70-1.30); GLOMERULAR FILTRATION RATE > 60.0 (>60); GLUCOSE, FASTING 103 MG/DL (70-100); POTASSIUM SERUM 4.9 MEQ/L (3.5-5.1); SODIUM LEVEL 136 MEQ/L (136-145); TOTAL PROTEIN 6.2 GM/DL (6.4-8.2)
[2021-01-11] MEDS ORDERED: levETIRAcetam INJection 500 MG in D5W MINI-BAG PLUS 100 ML IV ONE (19:00)
== END 2021-01-11 19:06 | disposition home or self-care (01) ==
LOC: M ED 16:26
DX: R56.9 Unspecified convulsions (principal); G35 Multiple sclerosis; Z79.899 Other long term (current) drug therapy
CPT/HCPCS: 70450; 80053; 96374; 99284; J1953

== ENCOUNTER 2021-01-13 11:13 | Observation (INO) | payer MEDICARE ==
[~2021-01-13] VITALS: Ht 180.3 cm; Wt 111.2 kg
[~2021-01-13 11:13] MED LIST changes: +KEPP1TAB PO
[2021-01-13] MEDS ORDERED: PRED10TA2 PO (11:21)
[2021-01-13] MEDS ORDERED: levETIRAcetam INJection 1,000 MG in D5W 100 ML IV ONE (13:00)
[2021-01-13 13:10] LABS: BASO # 0.1 10^3/uL (0.0-0.2); BASO % 0.5 % (0.0-1.0); EOS % 0.2 % (0.0-3.0); HEMATOCRIT 38.1 % (42.0-52.0); HEMOGLOBIN 12.6 g/dl (13.5-17.5); LYMPH # 1.2 10^3/uL (1.5-5.0); LYMPH % 6.1 % (24.0-44.0); MEAN CORPUSCULAR HEMOGLOBIN 30.7 pg (27.0-33.0); MEAN CORPUSCULAR HGB CONC 33.1 g/dl (32.0-36.5); MEAN CORPUSCULAR VOLUME 92.7 fl (80.0-96.0); MONO % 9.4 % (2.0-8.0); NEUTROPHILS # 15.6 10^3/uL (1.5-8.5); NEUTROPHILS % 80.3 % (36.0-66.0); PLATELET COUNT, AUTOMATED 426 10^3/uL (150-450); RED BLOOD COUNT 4.11 10^6/uL (4.30-6.10)
[2021-01-13] MEDS ORDERED: ACET-897 PO (13:22)
[2021-01-13] MEDS ORDERED: LEVE500T5 PO (13:22)
[2021-01-13] MEDS ORDERED: HOME MED LIST COMPLETE! XX SCH (13:25)
[2021-01-13 13:32] LABS: BLOOD UREA NITROGEN 15 MG/DL (7-18); CALCIUM LEVEL 8.7 MG/DL (8.5-10.1); CARBON DIOXIDE LEVEL 28 MEQ/L (21-32); CHLORIDE LEVEL 105 MEQ/L (98-107); CREATININE FOR GFR 0.82 MG/DL (0.70-1.30); GLOMERULAR FILTRATION RATE > 60.0 (>60); GLUCOSE, FASTING 85 MG/DL (70-100); POTASSIUM SERUM 5.1 MEQ/L (3.5-5.1); SODIUM LEVEL 136 MEQ/L (136-145)
[2021-01-13 13:48] LABS: WHITE BLOOD COUNT 19.5 10^3/uL (4.0-10.0)
[2021-01-13 13:49] LABS: MONO # 1.8 10^3/uL (0.0-0.8)
[2021-01-13 14:03] LABS: RSV AMPLIFICATION NEGATIVE (NEGATIVE)
[2021-01-13 14:36] LABS: CPK CREATINE PHOSPHOKINASE 23 U/L (39-308)
[2021-01-13] MEDS ORDERED: PILL CUTTER 1 EACH XX PRN (15:25)
--- NOTE | 2021-01-13 15:58 | HPEPDOC ---
[facility] Medical History & Physical Date of Admission Jan 13, 2021 Date of Service: Jan 13, 2021 Primary Care Physician: Abbey Sharp Attending Physician: ISRAEL RUBIN DO History and Physical CHIEF COMPLAINT: Seizures HISTORY OF PRESENT ILLNESS: Patient is a 45-year-old male with a past medical history of multiple sclerosis diagnosed in 2016 who follows with neurology who reports over the past few weeks he has had seizure-like activity. Patient states that he thought he was initially passing out however, he did have a witnessed seizure in his child's insurance sales assistant's office on 01/11/2021. Patient reported the emergency department at this time and was started on Keppra 500 mg twice daily. Patient was sent home and had a seizure again today. Patient states he called the neurology office who recommended he come into the hospital for an inpatient EEG. Patient states that when he had seizures it was reported that he has had slumped down in the chair and he began shaking his head back and forth. Patient states he does think he hit his head against the wall a few times. Patient is also complaining of some neck pain which he believes to be the cause of the seizures. Patient states that his neck is been bothering him for quite some time and he has taken numerous different medications for it in the past to differing effects. Patient says he is currently on methocarbamol which is not helpful. PAST MEDICAL HISTORY: 1. Multiple sclerosis. 2. Acute disseminated encephalomyelitis. 3. Nicotine dependence. PAST SURGICAL HISTORY: 1. Vasectomy. 2. Testicular torsion correction. 3. Appendectomy. SOCIAL HISTORY: Patient smokes 1/2-1 full pack of cigarettes a day. Rarely drinks alcohol and will occasionally smoke marijuana. 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 FAMILY HISTORY: Patient's father has heart disease ALLERGIES: Please see below. REVIEW OF SYSTEMS: General: Patient denies fevers HEENT: Patient denies headaches Cardiovascular: Patient denies chest pain Respiratory: Patient denies shortness of breath, cough GI: Patient denies abdominal pain, nausea, vomiting, diarrhea : Patient denies increased frequency or pain with urination Extremities: Patient denies swelling or pain in extremities Neurological: Patient denies numbness or tingling in legs Skin: Patient denies any new rashes or lesions. Musculoskeletal: Patient reports neck pain that radiates into his left shoulder Lymphatic: Patient denies any lumps lumps or bumps in neck, axilla, or groin HOME MEDICATIONS: Please see below. PHYSICAL EXAMINATION: VITAL SIGNS: Temperature 98.5, pulse 95, respiratory rate 16, blood pressure 135/83, pulse oximetry 99% on room air. General: Alert and oriented male patient who was sitting on the stretcher when I walked in the room. Patient did not appear to be in any acute distress. HEENT: Normocephalic, atraumatic, moist mucous membranes. Neck: No lymphadenopathy or thyromegaly Cardiac: Regular rate and rhythm, no murmurs, normal S1, normal S2 Pulm: Clear to auscultation bilaterally. No wheezes, rhonchi, rales Abd: Nondistended, nontender to palpation, normal bowel sounds Ext: No edema bilateral lower extremities Neuro: Patient is able to move all 4 extremities on command and reports equal sensation to light touch in all dermatomes of the upper and lower extremities. Cranial nerves III through XII intact bilaterally. Musculoskeletal: Hypertonicity of the trapezius muscle right greater than left with tenderness to palpation, no acute swelling or deformities Skin: Skin of the head, neck, back, upper and lower extremities are examined not show any evidence of rash or wounds LABORATORY DATA: See below. IMAGING: CT scan of the head without contrast from 01/11/2021 is reported to show no acute or concerning focal intracranial abnormality. MICROBIOLOGY: Please see below. ASSESSMENT: Patient is a 45-year-old male who presented with new onset seizure activity over the past few weeks. . PLAN: 1. New onset seizure activity. Patient does have a history of multiple sclerosis however, it is rare that multiple sclerosis because of seizure activities. I did speak with the patient's covering neurologist Dr. Alston who recommended an inpatient EEG and to increase his Keppra from 500 twice daily to 1000 twice daily. These changes have been made and EEG has been ordered. We will continue to monitor. Patient will be placed on seizure precautions. 2. Neck pain. Patient will be placed on tizanidine as needed and scheduled Tylenol for the neck pain. K pad has been ordered. CT scan of the neck is also been ordered as the patient complains that he was having his head moved back and forth during the seizures. 3. Multiple sclerosis. Patient is on infusion every 6 months. We will continue to monitor. Follow-up with neurology outpatient. 4. DVT prophylaxis: Lovenox 5. CODE STATUS: Full code Disposition: Patient remitted under observation to the medical surgical floor fo r new onset seizure activity. Once patient has his EEG, patient could be discharged tomorrow. Vital Signs Vital Signs Date Time Temp Pulse Resp B/P (MAP) Pulse Ox O2 Delivery O2 Flow Rate FiO2 01/13/21 15:00 95 16 135/83 (100) 99 Room Air 01/13/21 11:13 98.5 Laboratory Data Labs 24H Laboratory Tests 2 01/13/21 12:25: Immature Granulocyte % (Auto) 3.5H, Neutrophils (%) (Auto) 80.3H, Lymphocytes (%) (Auto) 6.1L, Monocytes (%) (Auto) 9.4H, Eosinophils (%) (Auto) 0.2, Basophils (%) (Auto) 0.5, Neutrophils # (Auto) 15.6H, Lymphocytes # (Auto) 1.2L, Monocytes # (Auto) 1.8H, Eosinophils # (Auto) 0.0, Basophils # (Auto) 0.1, Nucleated Red Blood Cells % (auto) 0.0, Anion Gap 3L, Glomerular Filtration Rate > 60.0, Calcium Level 8.7, Total Creatine Kinase 23L 01/13/21 13:09: Lactic Acid Level 2.1*H, Coronavirus (COVID-19)(PCR) NEGATIVE, Influenza Type A (RT-PCR) NEGATIVE, Influenza Type B (RT-PCR) NEGATIVE, Respiratory Syncytial Virus (PCR) NEGATIVE CBC/BMP Laboratory Tests 01/13/21 12:25 Home Medications Scheduled Levetiracetam (Keppra) 1,000 Mg Tablet, 1 TAB PO BID Ocrelizumab (Ocrevus) 300 Mg/10 Ml Vial, 600 MG IV [id number] Omeprazole (Omeprazole) 40 Mg Capsule.dr, 40 MG PO DAILY Prednisone (Prednisone) 10 Mg Tablet, 10 MG PO TAPER FILLED 01/04/21 - 20MG DAILY FOR 7 DAYS, 10MG DAILY FOR 7 DAYS, 5MG DAILY FOR 7 DAYS Scheduled PRN Acetaminophen (Tylenol Extra Strength) 500 Mg Tablet, 1,000 MG PO TID PRN for MILD PAIN (PS 1-4) Tizanidine HCl (Tizanidine HCl) 2 Mg Capsule, 2 MG PO TID PRN for MUSCLE SPASMS Allergies Coded Allergies: No Known Allergies (Unverified , 11/26/15) A-FIB/CHADSVASC A-FIB History Current/History of A-Fib/PAF?: No ISRAEL RUBIN DO Jan 13, 2021 15:58
--- NOTE | 2021-01-13 16:04 | REPVR ---
PROCEDURE INFORMATION: Exam: CT Cervical Spine Without Contrast Exam date and time: 01/13/2021 3:33 PM Age: 45 years old Clinical indication: Neck pain; Additional info: Neck pain after seizure TECHNIQUE: Imaging protocol: Computed tomography images of the cervical spine without contrast. Radiation optimization: All CT scans at this facility use at least one of these dose optimization techniques: automated exposure control; mA and/or kV adjustment per patient size (includes targeted exams where dose is matched to clinical indication); or iterative reconstruction. COMPARISON: MRI-Spine,Cervical without con 11/25/2015 7:55 PM FINDINGS: Bones/joints: A left convex spinal curvature is observed. There is no evidence of fracture. Discs/Spinal canal/Neural foramina: No significant disc protrusion. No severe spinal canal stenosis. No significant neural foraminal narrowing. Lungs: Lung apices are normal. Soft tissues: Unremarkable. IMPRESSION: There is no evidence of fracture. Electronically signed by: Jarad Cardenas On 01/13/2021 16:03:24 PM
[2021-01-13] MEDS: ACETAMINOPHEN 500 MG TAB PO SCH ×2 (16:23→21:39)
--- NOTE | 2021-01-13 20:31 | ECGEPIP ---
[facility] - ED Test Date: 2021-01-13 Pat Name: HUMBERTO PINO Department: Room: - Gender: Male [employer] Worker: LR : 1975 Requested By: Lambert Pritchett Order Number: [id number] Reading MD: Natalie Lockhart Measurements Intervals [place] Rate: 93 P: PA: QRS: 30 QRSD: 100 T: 25 QT: 372 QTc: 462 Interpretive Statements Accelerated Junctional rhythm with retrograde conduction Electronically Signed on 01-13-2021 20:30:50 EDT by Natalie Lockhart
[2021-01-13 21:14] VITALS: BP 127/75
[2021-01-13] MEDS: levETIRAcetam 250MG TABLET (KEPPRA) PO SCH (21:39)
[2021-01-13] MEDS ORDERED: OMEPRAZOLE 20 MG CAP PO ONE (21:50)
[2021-01-14 00:09] VITALS: O2SAT 98
[2021-01-14] MEDS ORDERED: NS 1,000 ML IV ONE (00:40)
[2021-01-14] MEDS: tiZANidine 4 MG TAB PO PRN ×2 (05:59→13:36)
[2021-01-14] MEDS: ACETAMINOPHEN 500 MG TAB PO SCH ×2 (05:59→13:37)
[2021-01-14 06:00] VITALS: BP 127/82
[2021-01-14 06:13] LABS: HEMATOCRIT 36.9 % (42.0-52.0); HEMOGLOBIN 12.1 g/dl (13.5-17.5); MEAN CORPUSCULAR HEMOGLOBIN 30.5 pg (27.0-33.0); MEAN CORPUSCULAR HGB CONC 32.8 g/dl (32.0-36.5); MEAN CORPUSCULAR VOLUME 92.9 fl (80.0-96.0); PLATELET COUNT, AUTOMATED 458 10^3/uL (150-450); RED BLOOD COUNT 3.97 10^6/uL (4.30-6.10); WHITE BLOOD COUNT 16.1 10^3/uL (4.0-10.0)
[2021-01-14 06:33] LABS: BLOOD UREA NITROGEN 16 MG/DL (7-18); CALCIUM LEVEL 7.8 MG/DL (8.5-10.1); CARBON DIOXIDE LEVEL 29 MEQ/L (21-32); CHLORIDE LEVEL 107 MEQ/L (98-107); CREATININE FOR GFR 0.89 MG/DL (0.70-1.30); GLOMERULAR FILTRATION RATE > 60.0 (>60); GLUCOSE, FASTING 89 MG/DL (70-100); MAGNESIUM LEVEL 2.2 MG/DL (1.8-2.4); POTASSIUM SERUM 4.7 MEQ/L (3.5-5.1); SODIUM LEVEL 138 MEQ/L (136-145)
[2021-01-14] MEDS: levETIRAcetam 250MG TABLET (KEPPRA) PO SCH (08:11)
[2021-01-14] MEDS ORDERED: OMEPRAZOLE 20 MG CAP PO SCH (09:00)
[2021-01-14] MEDS ORDERED: ENOXAPARIN 40MG/0.4ML SYRINGE (J1650 PER 10MG) SC SCH (09:00)
[2021-01-14] MEDS ORDERED: KEPP10002 PO (11:27)
[2021-01-14] MEDS ORDERED: TIZA2CAP PO (11:27)
--- NOTE | 2021-01-14 12:56 | DS.PDOC ---
Discharge Summary General Date of Admission Jan 13, 2021 at 11:14 Date of Discharge 01/14/2021 Primary Care Physician: Abbey Sharp Attending Physician: ISRAEL RUBIN DO Specialist/Consultants Involve: MARY ALSTON MD Discharge Summary PROCEDURES PERFORMED DURING STAY: EEG. ADMITTING DIAGNOSES: 1. New onset seizure activity. 2. Neck pain 3. Multiple sclerosis DISCHARGE DIAGNOSES: 1. New onset seizure activity. 2. Neck pain 3. Multiple sclerosis COMPLICATIONS/CHIEF COMPLAINT: Recurrent Seizures. HISTORY OF PRESENT ILLNESS: Patient is a 45-year-old male with past medical history multiple sclerosis who follows with neurology who reports over the past few weeks has been having seizure-like activity. 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 Patient reported the emergency department at that time and was started on Keppra 500 mg twice daily. Patient was sent home and said he had a seizure again today, 01/13/2021. Patient says when he has the seizures his head will drop down and he will begin moving his head back and forth. Patient says he thinks he pulled something in his neck while having one of the seizures as he is having some increased neck pain. Patient says that he believes some of the neck pain is the cause of his seizures. Patient states he called the neurology office who recommended patient come to the hospital for an inpatient EEG. Patient has taken numerous muscle re laxers for his neck pain but he says that none of these have been helpful. Patient was admitted for monitoring for seizure activity. HOSPITAL COURSE: Patient did not have any seizure activity overnight. Patient was placed on tizanidine with scheduled Tylenol 1000 mg every 8 hours. Patient says that his neck pain was feeling better. Patient had his EEG performed. Dr. Alston of neurology saw the patient and agreed that the patient can be started on Keppra 1000 mg twice daily and after his EEG be discharged from the hospital. Patient was doing well and was able to walk around the room without any difficulty. Patient was deemed ready for discharge on 01/14/2021. DISCHARGE MEDICATIONS: Please see below. ALLERGIES: Please see below. PHYSICAL EXAMINATION ON DISCHARGE: VITAL SIGNS: Please see below. General: Alert and oriented male patient who was sitting in the bed when I walked in the room. Patient did not appear to be in any acute distress. HEENT: Normocephalic, atraumatic, moist mucous membranes. Neck: No lymphadenopathy or thyromegaly Cardiac: Regular rate and rhythm, no murmurs, normal S1, physiologic splitting of S2 with inspiration Pulm: Clear to auscultation bilaterally. No wheezes, rhonchi, rales Abd: Nondistended, nontender to palpation, normal bowel sounds Ext: No edema bilateral lower extremities Neuro: Patient was able to move all 4 extremities on command. Patient reported equal sensation light touch in upper and lower extremities bilaterally LABORATORY DATA: Please see below. IMAGING: CT scan of the head without contrast from 01/11/2021 is reported to show no acute or concerning focal intracranial abnormality. CT scan of the cervical spine performed without contrast on 01/13/2021 is reported to show no acute fracture. PROGNOSIS: Good ACTIVITY: As tolerated. DIET: Regular DISCHARGE PLAN: Discharge home DISPOSITION: . DISCHARGE INSTRUCTIONS: 1. Follow-up with primary care provider within 5 to 7 days of discharge. 2. Call the neurology office and see if Dr. Silva would like to see you prior to your appointment in 1 month based on the recommendations from Dr. Alston 3. Start Keppra 1000 mg twice daily. 4. Continue taking tizanidine 2 mg every 8 hours as needed and Tylenol 1000 mg every 8 hours for neck pain 5. Return to the emergency department if your symptoms worsen ITEMS TO FOLLOWUP ON ON OUTPATIENT: 1. EEG report. DISCHARGE CONDITION: Stable. TIME SPENT ON DISCHARGE: 25 minutes. Vital Signs/I&Os Vital Signs Date Time Temp Pulse Resp B/P (MAP) Pulse Ox O2 Delivery O2 Flow Rate FiO2 01/14/21 06:00 97.7 92 18 127/82 (97) 98 Room Air I&O- Last 24 Hours up to 6 AM 01/14/21 05:59 Intake Total 1910 ml Output Total 1075 ml Balance 835 ml Laboratory Data Labs 24H Laboratory Tests 2 01/13/21 13:09: Lactic Acid Level 2.1*H, Coronavirus (COVID-19)(PCR) NEGATIVE, Influenza Type A (RT-PCR) NEGATIVE, Influenza Type B (RT-PCR) NEGATIVE, Respiratory Syncytial Virus (PCR) NEGATIVE 01/13/21 19:13: Lactic Acid Followup at 4 Hours 2.1*H 01/14/21 05:38: Nucleated Red Blood Cells % (auto) 0.0, Anion Gap 2L, Glomerular Filtration Rate > 60.0, Calcium Level 7.8L, Magnesium Level 2.2 CBC/BMP Laboratory Tests 01/14/21 05:38 Discharge Medications Scheduled Levetiracetam (Keppra) 1,000 Mg Tablet, 1 TAB PO BID Ocrelizumab (Ocrevus) 300 Mg/10 Ml Vial, 600 MG IV [id number], (Reported) Omeprazole (Omeprazole) 40 Mg Capsule.dr, 40 MG PO DAILY, (Reported) Prednisone (Prednisone) 10 Mg Tablet, 10 MG PO TAPER, (Reported) FILLED 01/04/21 - 20MG DAILY FOR 7 DAYS, 10MG DAILY FOR 7 DAYS, 5MG DAILY FOR 7 DAYS Scheduled PRN Acetaminophen (Tylenol Extra Strength) 500 Mg Tablet, 1,000 MG PO TID PRN for MILD PAIN (PS 1-4), (Reported) Tizanidine HCl (Tizanidine HCl) 2 Mg Capsule, 2 MG PO TID PRN for MUSCLE SPASMS Allergies Coded Allergies: No Known Allergies (Unverified , 11/26/15) ISRAEL RUBIN DO Jan 14, 2021 12:56
--- NOTE | 2021-01-15 07:46 | CR ---
CONSULTATION DATE: 01/13/2021 REFERRING PHYSICIAN: Colby Tineo DO REASON FOR CONSULTATION: Seizures. HISTORY OF PRESENT ILLNESS: The patient is a 45-year-old man with a history of multiple sclerosis diagnosed in 2016 and takes Ocrevus every six months for his multiple sclerosis. 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 He was sitting in a chair and loss of consciousness, eyes rolled back and he was shaking for 30 seconds. He states that he was postictal for 15-30 seconds only. He states that he had apologized to office staff that he had done that. He was sent to the Emergency Department. He was given Keppra 500 mg b.i.d. He was discharged home and had another seizure on January 13, 2021. He states that he also had increased pain and thinks that he may have pinched a nerve in his neck which may have caused his seizures. I explained to him that it is less likely. Patient complains of 6/10 neck pain which radiates down to his right shoulder. He states the neck pain has been bothering him for quite some time but he may have bounced his head back and forth when shaking and aggravated his neck. He states Methocarbamol does not help him. He has on and off headaches and back pain. He denies dysphagia, dysarthria, diplopia or urinary incontinence. PAST MEDICAL HISTORY: Multiple sclerosis, nicotine dependence, history of acute disseminated encephalomyelitis, vasectomy, testicular torsion which was surgically corrected, appendectomy. SOCIAL HISTORY: He smokes half to one pack per day. He rarely drinks alcohol. He occasionally smokes marijuana. FAMILY HISTORY: Father with a history of heart disease. REVIEW OF SYSTEMS: All systems were reviewed and found to be noncontributory except as mentioned in the history of present illness. HOME MEDICATIONS: 1. Keppra 500 mg p.o. b.i.d. which was increased to 1000 mg p.o. b.i.d. during this hospital admission. 2. Ocrevus 600 mg IV q. six months. 3. Omeprazole 40 mg daily. 4. Prednisone 10 mg taper. 5. Tizanidine as needed. 6. Tylenol as needed. ALLERGIES: None. PHYSICAL EXAMINATION: Temperature is 98.5, pulse 95, respiratory rate 16, blood pressure 135/83, 99% saturation on room air. Heart: Regular rate and rhythm. Lungs are clear to auscultation. Abdomen is soft, nontender and nondistended. No pedal edema. No musculoskeletal abnormalities. No rash. No signs of meningeal irritation. Patient is awake, alert and oriented to place, person and time. Normal speech, comprehension and repetition. Extraocular muscles are intact. No facial weakness. Tongue and uvula are midline. There is 5/5 strength in all four extremities. Deep tendon reflexes are 2+ throughout. Normal sensation throughout. No nystagmus, tremor or dysmetria. DIAGNOSTIC STUDIES: CT scan of cervical spine is reported as normal. CBC showed WBC of 16.1, hemoglobin 12.1, lactic acid was 2.1, normal metabolic profile. CK was 23. ASSESSMENT: 1. Suspected generalized tonic clonic seizures. 2. History of multiple sclerosis. 3. Chronic neck pain with normal CT scan of cervical spine. PLAN: 1. Keppra 1000 mg p.o. b.i.d. 2. EEG. 3. [facility] Rules and Regulations regarding driving were explained. He is aware that he should not be driving, ___ alone. 4. Follow with our office as planned.
== END 2021-01-14 13:53 | disposition home or self-care (01) ==
LOC: M ED 11:13 → M ED INP 11:14 → ENRESERV 18:46 → M MSPAV 21:14
PROVIDERS: ADMIT Family Medicine; ATTEND Family Medicine
DX: R56.9 Unspecified convulsions (principal); M54.2 Cervicalgia; G35 Multiple sclerosis; Z86.19 Personal history of other infectious and parasitic diseases; F17.210 Nicotine dependence, cigarettes, uncomplicated; Z79.899 Other long term (current) drug therapy; Z79.52 Long term (current) use of systemic steroids
CPT/HCPCS: 36415; 72125; 80048; 82550; 83605; 83735; 85025; 85027; 87631; 93005; 95819; 96361; 96365; 96372; 97161; 97530; 99285; G0378; J1650; J1953

== ENCOUNTER → 2021-01-20 | Outpatient (CLI) | payer MEDICARE ==
[~2021-01-20] MED LIST changes: +ACET-897 PO; +KEPP10002 PO; +LEVE500T5 PO; +PRED10TA2 PO; +TIZA2CAP PO
[2021-01-20 15:50] LABS: BASO # 0.1 10^3/uL (0.0-0.2); BASO % 0.6 % (0.0-1.0); EOS # 0.2 10^3/uL (0.0-0.5); HEMATOCRIT 42.7 % (42.0-52.0); HEMOGLOBIN 13.7 g/dl (13.5-17.5); LYMPH # 2.5 10^3/uL (1.5-5.0); LYMPH % 14.8 % (24.0-44.0); MEAN CORPUSCULAR HEMOGLOBIN 30.1 pg (27.0-33.0); MEAN CORPUSCULAR HGB CONC 32.1 g/dl (32.0-36.5); MEAN CORPUSCULAR VOLUME 93.8 fl (80.0-96.0); MONO % 11.6 % (2.0-8.0); NEUTROPHILS % 70.5 % (36.0-66.0); PLATELET COUNT, AUTOMATED 620 10^3/uL (150-450); RED BLOOD COUNT 4.55 10^6/uL (4.30-6.10)
[2021-01-20 16:18] LABS: ALT/SGPT 33 U/L (12-78); BILIRUBIN,TOTAL 0.4 MG/DL (0.2-1.0); BLOOD UREA NITROGEN 16 MG/DL (7-18); CALCIUM LEVEL 9.1 MG/DL (8.5-10.1); CARBON DIOXIDE LEVEL 29 MEQ/L (21-32); CHLORIDE LEVEL 105 MEQ/L (98-107); CREATININE FOR GFR 0.97 MG/DL (0.70-1.30); GLOMERULAR FILTRATION RATE > 60.0 (>60); GLUCOSE, FASTING 90 MG/DL (70-100); POTASSIUM SERUM 5.4 MEQ/L (3.5-5.1); SODIUM LEVEL 137 MEQ/L (136-145); TOTAL PROTEIN 7.1 GM/DL (6.4-8.2)
[2021-01-20 17:31] LABS: WHITE BLOOD COUNT 17.1 10^3/uL (4.0-10.0)
[2021-01-24 16:07] LABS: LEVETIRACETAM (KEPPRA) 7.7 ug/mL (10.0-40.0); Lyme Disease IgG Ab 18 kDa Ban Absent (.); Lyme Disease IgG Ab 23 kDa Ban Absent (.); Lyme Disease IgG Ab 28 kDa Ban Absent (.); Lyme Disease IgG Ab 30 kDa Ban Absent (.); Lyme Disease IgG Ab 39 kDa Ban Absent (.); Lyme Disease IgG Ab 41 kDa Ban Present (.); Lyme Disease IgG Ab 45 kDa Ban Absent (.); Lyme Disease IgG Ab 58 kDa Ban Absent (.); Lyme Disease IgG Ab 66 kDa Ban Absent (.); Lyme Disease IgG Ab 93 kDa Ban Absent (.); Lyme Disease IgG West Blot Int Negative (.); Lyme Disease IgG/IgM Antibodie 1.98 ISR (0.00-0.90); Lyme Disease IgM Ab 23 kDa Ban Present (.); Lyme Disease IgM Ab 39 kDa Ban Absent (.); Lyme Disease IgM Ab 41 kDa Ban Present (.); Lyme Disease IgM Ab Quantitati 5.24 index (0.00-0.79); Lyme Disease IgM West Blot Int Positive (.)
== END ==
LOC: M PLALAB 14:49
PROVIDERS: ATTEND Physician Assistant Medical
DX: D72.820 Lymphocytosis (symptomatic) (principal); R56.9 Unspecified convulsions
CPT/HCPCS: 36415; 80053; 80180; 83605; 85025; 86617; G0463

== ENCOUNTER → 2021-01-21 | Outpatient (CLI) | payer MEDICARE | LOC: M LAB 08:48 | PROVIDERS: ATTEND Physician Assistant Medical | DX: D72.820 Lymphocytosis (symptomatic) (principal) ==

== ENCOUNTER → 2021-01-26 | Outpatient (REF) | payer MEDICARE ==
[2021-01-26 11:39] LABS: BASO # 0.1 10^3/uL (0.0-0.2); BASO % 0.5 % (0.0-1.0); EOS % 0.2 % (0.0-3.0); HEMOGLOBIN 11.5 g/dl (13.5-17.5); LYMPH # 1.7 10^3/uL (1.5-5.0); LYMPH % 9.9 % (24.0-44.0); MEAN CORPUSCULAR HEMOGLOBIN 30.4 pg (27.0-33.0); MEAN CORPUSCULAR HGB CONC 32.9 g/dl (32.0-36.5); MEAN CORPUSCULAR VOLUME 92.6 fl (80.0-96.0); MONO # 1.1 10^3/uL (0.0-0.8); MONO % 6.2 % (2.0-8.0); NEUTROPHILS # 13.9 10^3/uL (1.5-8.5); NEUTROPHILS % 82.6 % (36.0-66.0); PLATELET COUNT, AUTOMATED 402 10^3/uL (150-450); RED BLOOD COUNT 3.78 10^6/uL (4.30-6.10); WHITE BLOOD COUNT 16.9 10^3/uL (4.0-10.0)
[2021-01-26 11:49] LABS: INR 1.2; PROTHROMBIN TIME 15.6 SECONDS (12.7-14.5)
[2021-01-26 11:50] LABS: PARTIAL THROMBOPLASTIN TIME 36.4 SECONDS (25.9-37.0)
[2021-01-26 12:04] LABS: ERYTHROCYTE SEDIMENTATION RATE 71 mm/hr (0-15)
[2021-01-26 12:16] LABS: ALBUMIN 2.6 GM/DL (3.2-5.2); ALT/SGPT 19 U/L (12-78); BILIRUBIN,TOTAL 1.1 MG/DL (0.2-1.0); BLOOD UREA NITROGEN 14 MG/DL (7-18); CALCIUM LEVEL 8.5 MG/DL (8.5-10.1); CARBON DIOXIDE LEVEL 26 MEQ/L (21-32); CHLORIDE LEVEL 106 MEQ/L (98-107); GLOMERULAR FILTRATION RATE > 60.0 (>60); GLUCOSE, FASTING 80 MG/DL (70-100); POTASSIUM SERUM 4.9 MEQ/L (3.5-5.1); SODIUM LEVEL 137 MEQ/L (136-145); TOTAL PROTEIN 6.2 GM/DL (6.4-8.2)
[2021-01-28 15:09] LABS: LEVETIRACETAM (KEPPRA) 12.1 ug/mL (10.0-40.0); Lyme Disease IgG Ab 18 kDa Ban Absent (.); Lyme Disease IgG Ab 23 kDa Ban Absent (.); Lyme Disease IgG Ab 28 kDa Ban Absent (.); Lyme Disease IgG Ab 30 kDa Ban Absent (.); Lyme Disease IgG Ab 39 kDa Ban Absent (.); Lyme Disease IgG Ab 41 kDa Ban Present (.); Lyme Disease IgG Ab 45 kDa Ban Absent (.); Lyme Disease IgG Ab 58 kDa Ban Absent (.); Lyme Disease IgG Ab 66 kDa Ban Absent (.); Lyme Disease IgG Ab 93 kDa Ban Absent (.); Lyme Disease IgG West Blot Int Negative (.); Lyme Disease IgG/IgM Antibodie 1.94 ISR (0.00-0.90); Lyme Disease IgM Ab 23 kDa Ban Present (.); Lyme Disease IgM Ab 39 kDa Ban Present (.); Lyme Disease IgM Ab 41 kDa Ban Present (.); Lyme Disease IgM Ab Quantitati 4.81 index (0.00-0.79); Lyme Disease IgM West Blot Int Positive (.)
== END ==
LOC: M SFHCPLAZ 08:41 → M SFHCADAM 08:52
PROVIDERS: ATTEND Physician Assistant Medical
DX: D72.820 Lymphocytosis (symptomatic) (principal); R56.9 Unspecified convulsions

== ENCOUNTER → 2021-02-04 | Outpatient (REF) | payer MEDICARE ==
[2021-02-05 19:08] LABS: ANA (HEP2) Negative (.)
== END ==
LOC: M SFHCPLAZ 09:19 → M SFHCADAM 09:45
PROVIDERS: ATTEND Physician Assistant Medical
DX: A69.21 Meningitis due to Lyme disease (principal)

== ENCOUNTER → 2021-02-09 | Outpatient (REF) | payer MEDICARE ==
[2021-02-11 14:09] LABS: Lyme Disease IgG Ab 18 kDa Ban Absent (.); Lyme Disease IgG Ab 23 kDa Ban Absent (.); Lyme Disease IgG Ab 28 kDa Ban Absent (.); Lyme Disease IgG Ab 30 kDa Ban Absent (.); Lyme Disease IgG Ab 39 kDa Ban Absent (.); Lyme Disease IgG Ab 41 kDa Ban Absent (.); Lyme Disease IgG Ab 45 kDa Ban Absent (.); Lyme Disease IgG Ab 58 kDa Ban Absent (.); Lyme Disease IgG Ab 66 kDa Ban Absent (.); Lyme Disease IgG Ab 93 kDa Ban Absent (.); Lyme Disease IgG West Blot Int Negative (.); Lyme Disease IgM Ab 23 kDa Ban Present (.); Lyme Disease IgM Ab 39 kDa Ban Present (.); Lyme Disease IgM Ab 41 kDa Ban Absent (.); Lyme Disease IgM Ab Quantitati 3.27 index (0.00-0.79); Lyme Disease IgM West Blot Int Positive (.)
== END ==
LOC: M SFHCPLAZ 08:11 → M SFHCADAM 08:15
PROVIDERS: ATTEND Physician Assistant Medical
DX: A69.21 Meningitis due to Lyme disease (principal)

== ENCOUNTER → 2021-02-26 | Outpatient (REF) | payer MEDICARE ==
[2021-02-26 11:48] LABS: HEMATOCRIT 45.1 % (42.0-52.0); HEMOGLOBIN 14.7 g/dl (13.5-17.5); MEAN CORPUSCULAR HEMOGLOBIN 30.4 pg (27.0-33.0); MEAN CORPUSCULAR HGB CONC 32.6 g/dl (32.0-36.5); MEAN CORPUSCULAR VOLUME 93.2 fl (80.0-96.0); PLATELET COUNT, AUTOMATED 288 10^3/uL (150-450); RED BLOOD COUNT 4.84 10^6/uL (4.30-6.10); WHITE BLOOD COUNT 8.4 10^3/uL (4.0-10.0)
[2021-02-26 12:24] LABS: ERYTHROCYTE SEDIMENTATION RATE 4 mm/hr (0-15)
[2021-03-01 14:08] LABS: Lyme Disease IgG Ab 18 kDa Ban Absent (.); Lyme Disease IgG Ab 23 kDa Ban Absent (.); Lyme Disease IgG Ab 28 kDa Ban Absent (.); Lyme Disease IgG Ab 30 kDa Ban Absent (.); Lyme Disease IgG Ab 39 kDa Ban Absent (.); Lyme Disease IgG Ab 41 kDa Ban Absent (.); Lyme Disease IgG Ab 45 kDa Ban Absent (.); Lyme Disease IgG Ab 58 kDa Ban Absent (.); Lyme Disease IgG Ab 66 kDa Ban Absent (.); Lyme Disease IgG Ab 93 kDa Ban Absent (.); Lyme Disease IgG West Blot Int Negative (.); Lyme Disease IgG/IgM Antibodie 1.69 ISR (0.00-0.90); Lyme Disease IgM Ab 23 kDa Ban Absent (.); Lyme Disease IgM Ab 39 kDa Ban Present (.); Lyme Disease IgM Ab 41 kDa Ban Absent (.); Lyme Disease IgM Ab Quantitati 1.71 index (0.00-0.79); Lyme Disease IgM West Blot Int Negative (.)
== END ==
LOC: M SFHCPLAZ 08:31 → M SFHCADAM 09:05
PROVIDERS: ATTEND Physician Assistant Medical
DX: A69.21 Meningitis due to Lyme disease (principal)

== ENCOUNTER 2021-04-06 09:02 | Outpatient (CLI) | payer MEDICARE ==
[~2021-04-06] VITALS: Ht 180.3 cm; Wt 113.6 kg
[~2021-04-06 09:02] MED LIST changes: +ACETAMINOPHEN TAB 650MG DOSE (2X325MG) PO ONE; +OCRELIZUMAB 600 MG in NS 500 ML IV ONE; +diphenhydrAMINE 25MG CAP PO ONE; +methylPREDNISolone 125MG 2ML VIAL IV ONE
[2021-04-06 09:20] VITALS: BP 130/82
[2021-04-06 10:30] VITALS: BP 140/70
[2021-04-06 11:00] VITALS: BP 119/70
[2021-04-06 11:30] VITALS: BP 128/72
[2021-04-06 12:30] VITALS: BP 136/77
[2021-04-06 13:44] VITALS: BP 144/71
== END 2021-04-06 13:35 | disposition home or self-care (01) ==
LOC: M INFU 09:02
PROVIDERS: ATTEND Psychiatry & Neurology Neurology
DX: G35 Multiple sclerosis (principal)
CPT/HCPCS: 96365; 96366; 96375; J2350; J2930

== ENCOUNTER 2021-10-04 08:38 | Outpatient (CLI) | payer MEDICARE ==
[~2021-10-04] VITALS: Ht 180.3 cm; Wt 113.6 kg
[2021-10-04] VITALS (7 sets, daily range): BP systolic 117–135; BP diastolic 71–83
[~2021-10-04 08:38] MED LIST changes: -OMEP-221 PO; +OMEP40CA5 PO
== END 2021-10-04 13:30 | disposition home or self-care (01) ==
LOC: M INFU 08:38
PROVIDERS: ATTEND Psychiatry & Neurology Neurology
DX: G35 Multiple sclerosis (principal)
CPT/HCPCS: 96365; 96366; J2350; J2930

== ENCOUNTER 2022-04-11 10:00 | Outpatient (CLI) | payer MEDICARE, MEDICAID ==
[~2022-04-11] VITALS: Ht 180.3 cm; Wt 113.0 kg
[2022-04-11 10:15] VITALS: BP 126/63
[2022-04-11 12:00] VITALS: BP_SYST 111; BP_SYST 138; BP_DIAS 69; BP_DIAS 77
[2022-04-11 12:30] VITALS: BP_SYST 123; BP_SYST 128; BP_DIAS 81
[2022-04-11 13:00] VITALS: BP 115/73
[2022-04-11 14:00] VITALS: BP 115/73
[2022-04-11 15:20] VITALS: BP 116/74
== END 2022-04-11 15:25 | disposition home or self-care (01) ==
LOC: M INFU 10:00
PROVIDERS: ATTEND Psychiatry & Neurology Neurology
DX: G35 Multiple sclerosis (principal)
CPT/HCPCS: 96365; 96366; J2350; J2930

== ENCOUNTER → 2022-09-08 | Outpatient (REF) | payer MEDICARE ==
[~2022-09-08] MED LIST changes: -ACETAMINOPHEN TAB 650MG DOSE (2X325MG) PO ONE; -OCRELIZUMAB 600 MG in NS 500 ML IV ONE; -diphenhydrAMINE 25MG CAP PO ONE; -methylPREDNISolone 125MG 2ML VIAL IV ONE
[2022-09-08 14:59] LABS: BASO # 0.1 10^3/uL (0.0-0.2); EOS # 0.6 10^3/uL (0.0-0.5); EOS % 6.6 % (0.0-3.0); HEMOGLOBIN 15.7 g/dl (13.5-17.5); LYMPH # 2.4 10^3/uL (1.5-5.0); LYMPH % 25.4 % (24.0-44.0); MEAN CORPUSCULAR HEMOGLOBIN 31.5 pg (27.0-33.0); MEAN CORPUSCULAR HGB CONC 32.7 g/dl (32.0-36.5); MEAN CORPUSCULAR VOLUME 96.2 fl (80.0-96.0); MONO # 0.8 10^3/uL (0.0-0.8); MONO % 8.9 % (2.0-8.0); NEUTROPHILS # 5.5 10^3/uL (1.5-8.5); NEUTROPHILS % 57.7 % (36.0-66.0); PLATELET COUNT, AUTOMATED 305 10^3/uL (150-450); RED BLOOD COUNT 4.99 10^6/uL (4.30-6.10); WHITE BLOOD COUNT 9.5 10^3/uL (4.0-10.0)
[2022-09-08 15:04] LABS: ALBUMIN 3.9 G/DL (3.2-5.2); ALKALINE PHOSPHATASE 56 U/L (46-116); ALT/SGPT 26 U/L (7.0-40); AST/SGOT 19 U/L (<34); BILIRUBIN,TOTAL 0.3 MG/DL (0.3-1.2); BLOOD UREA NITROGEN 10 MG/DL (9-23); CALCIUM LEVEL 9.2 MG/DL (8.5-10.1); CARBON DIOXIDE LEVEL 28 MMOL/L (20-31); CHLORIDE LEVEL 106 MMOL/L (98-107); CHOLESTEROL LEVEL 204 MG/DL (<200); CHOLESTEROL RISK RATIO 3.61 (<5); CREATININE FOR GFR 1.08 MG/DL (0.70-1.30); FREE T4 1.08 NG/DL (0.89-1.76); GLOMERULAR FILTRATION RATE > 60.0 (>60); GLUCOSE, FASTING 92 MG/DL (60-100); HDL CHOLESTEROL 56.4 MG/DL (>40); LDL CHOLESTEROL 115.8 MG/DL (<100); NON-HDL-C 147.6 MG/DL; POTASSIUM SERUM 5.2 MMOL/L (3.5-5.1); SODIUM LEVEL 141 MMOL/L (136-145); THYROID STIMULATING HORMONE 0.905 uIU/ML (0.55-4.78); TOTAL PROTEIN 6.1 G/DL (5.7-8.2); TRIGLYCERIDES LEVEL 159 MG/DL (<150)
== END ==
LOC: M SFHCADAM 07:33
PROVIDERS: ATTEND Family Medicine
DX: Z00.00 Encounter for general adult medical examination without abnormal findings (principal); F41.9 Anxiety disorder, unspecified

== ENCOUNTER 2022-10-04 08:41 | Outpatient (CLI) | payer MEDICARE, MEDICAID ==
[~2022-10-04] VITALS: Ht 180.3 cm; Wt 113.0 kg
[~2022-10-04 08:41] MED LIST changes: +ACETAMINOPHEN TAB 650MG DOSE (2X325MG) PO ONE; +OCRELIZUMAB 600 MG in NS 500 ML IV ONE; +diphenhydrAMINE 25MG CAP PO ONE; +methylPREDNISolone 125MG 2ML VIAL IV ONE
[2022-10-04 09:06] VITALS: BP 117/78
[2022-10-04 13:06] VITALS: BP 125/71
== END 2022-10-04 13:10 | disposition home or self-care (01) ==
LOC: M INFU 08:41
PROVIDERS: ATTEND Psychiatry & Neurology Neurology
DX: G35 Multiple sclerosis (principal)
CPT/HCPCS: 96365; 96366; J2350

== ENCOUNTER → 2022-12-22 | Outpatient (REF) | payer MEDICARE, MEDICAID ==
[~2022-12-22] MED LIST changes: -ACETAMINOPHEN TAB 650MG DOSE (2X325MG) PO ONE; -OCRELIZUMAB 600 MG in NS 500 ML IV ONE; -diphenhydrAMINE 25MG CAP PO ONE; -methylPREDNISolone 125MG 2ML VIAL IV ONE
== END ==
LOC: M SFHCADAM 13:03
PROVIDERS: ATTEND Physician Assistant Medical
DX: R05.1 Acute cough (principal)

== ENCOUNTER 2023-04-06 09:42 | Outpatient (CLI) | payer MEDICARE, MEDICAID ==
[~2023-04-06] VITALS: Ht 180.3 cm; Wt 111.4 kg
[~2023-04-06 09:42] MED LIST changes: +ACETAMINOPHEN TAB 650MG DOSE (2X325MG) PO ONE; +OCRELIZUMAB 600 MG in NS 500 ML IV ONE; +diphenhydrAMINE 25MG CAP PO ONE; +methylPREDNISolone 125MG 2ML VIAL IV ONE
[2023-04-06 09:45] VITALS: BP 148/90; O2SAT 96
[2023-04-06 10:30] VITALS: BP 138/78; O2SAT 96
[2023-04-06 11:00] VITALS: BP 132/68; O2SAT 97
[2023-04-06 13:59] VITALS: BP 125/77; O2SAT 99
== END 2023-04-06 14:00 ==
LOC: M INFU 09:42
PROVIDERS: ATTEND Psychiatry & Neurology Neurology
DX: G35 Multiple sclerosis (principal)
CPT/HCPCS: 96365; 96366; 96375; J2350; J2930

== ENCOUNTER 2023-06-14 07:09 | Day surgery (SDC) | payer MEDICARE, MEDICAID ==
[~2023-06-14] VITALS: Ht 180.3 cm; Wt 109.5 kg
[~2023-06-14 07:09] MED LIST changes: -ACETAMINOPHEN TAB 650MG DOSE (2X325MG) PO ONE; +NS 1,000 ML IV ONE; -OCRELIZUMAB 600 MG in NS 500 ML IV ONE; -diphenhydrAMINE 25MG CAP PO ONE; -methylPREDNISolone 125MG 2ML VIAL IV ONE
[2023-06-14] MEDS ORDERED: propofoL 200 MG/20 ML VIAL As Ordered ONE (07:35)
[2023-06-14 07:56] VITALS: TEMP 97.4
[2023-06-14 08:11] VITALS: BP 113/78; O2SAT 98
== END 2023-06-14 08:17 | disposition home or self-care (01) ==
LOC: M OPP 07:09
PROVIDERS: ATTEND Surgery
DX: Z12.11 Encounter for screening for malignant neoplasm of colon (principal); Z83.710 Family history of adenomatous and serrated polyps; K64.0 First degree hemorrhoids; K57.30 Diverticulosis of large intestine without perforation or abscess without bleeding; F17.200 Nicotine dependence, unspecified, uncomplicated; Z79.1 Long term (current) use of non-steroidal anti-inflammatories (NSAID); Z79.620 Long term (current) use of immunosuppressive biologic; Z79.899 Other long term (current) drug therapy

== ENCOUNTER → 2023-09-28 | Outpatient (REF) | payer MEDICARE, MEDICAID ==
[~2023-09-28] MED LIST changes: -NS 1,000 ML IV ONE
[2023-09-28 14:24] LABS: BASO # 0.1 10^3/uL (0.0-0.2); BASO % 1.1 % (0.0-1.0); EOS # 0.6 10^3/uL (0.0-0.5); HEMATOCRIT 46.1 % (42.0-52.0); HEMOGLOBIN 15.3 g/dl (13.5-17.5); LYMPH # 2.4 10^3/uL (1.5-5.0); LYMPH % 29.7 % (24.0-44.0); MEAN CORPUSCULAR HGB CONC 33.2 g/dl (32.0-36.5); MEAN CORPUSCULAR VOLUME 96.4 fl (80.0-96.0); MONO # 0.9 10^3/uL (0.0-0.8); MONO % 10.9 % (2.0-8.0); NEUTROPHILS % 49.5 % (36.0-66.0); PLATELET COUNT, AUTOMATED 290 10^3/uL (150-450); RED BLOOD COUNT 4.78 10^6/uL (4.30-6.10)
[2023-09-28 14:55] LABS: ALBUMIN 3.6 G/DL (3.2-5.2); ALKALINE PHOSPHATASE 52 U/L (46-116); ALT/SGPT 21 U/L (7.0-40); AST/SGOT 13 U/L (<34); BILIRUBIN,TOTAL 0.3 MG/DL (0.3-1.2); BLOOD UREA NITROGEN 15 MG/DL (9-23); CALCIUM LEVEL 9.2 MG/DL (8.5-10.1); CARBON DIOXIDE LEVEL 28 MMOL/L (20-31); CHLORIDE LEVEL 107 MMOL/L (98-107); CREATININE FOR GFR 1.05 MG/DL (0.70-1.30); GLOMERULAR FILTRATION RATE > 60.0 (>60); GLUCOSE, FASTING 85 MG/DL (60-100); POTASSIUM SERUM 4.3 MMOL/L (3.5-5.1); SODIUM LEVEL 142 MMOL/L (136-145); TOTAL PROTEIN 6.1 G/DL (5.7-8.2)
== END ==
LOC: M LAB REF 13:09 → M LABDRWAD 13:09
PROVIDERS: ATTEND Psychiatry & Neurology Neurology
DX: G35 Multiple sclerosis (principal)

== ENCOUNTER 2023-10-05 09:09 | Outpatient (CLI) | payer MEDICARE, MEDICAID ==
[~2023-10-05] VITALS: Ht 180.3 cm; Wt 114.0 kg
[2023-10-05 08:30] VITALS: BP 115/71; O2SAT 95
[2023-10-05] MEDS: methylPREDNISolone 125MG 2ML VIAL IV ONE (09:41)
[2023-10-05] MEDS: ACETAMINOPHEN TAB 650MG DOSE (2X325MG) PO ONE (09:41)
[2023-10-05] MEDS: diphenhydrAMINE 25MG CAP PO ONE (09:41)
[2023-10-05] MEDS: OCRELIZUMAB 600 MG in NS 500 ML IV ONE (09:59)
[2023-10-05 10:30] VITALS: BP 108/60; O2SAT 97
[2023-10-05 11:00] VITALS: BP 118/76; O2SAT 97
[2023-10-05 11:30] VITALS: BP 119/79; O2SAT 100
[2023-10-05 12:00] VITALS: BP 122/81; O2SAT 100
[2023-10-05 13:55] VITALS: BP 121/70; O2SAT 98
== END 2023-10-05 14:00 ==
LOC: M INFU 09:09
PROVIDERS: ATTEND Psychiatry & Neurology Neurology
DX: G35 Multiple sclerosis (principal)
CPT/HCPCS: 96365; 96366; 96367; J2350; J2919

== ENCOUNTER 2024-04-09 07:46 | Outpatient (CLI) | payer MEDICARE, OTHER ==
[~2024-04-09] VITALS: Ht 177.8 cm; Wt 110.0 kg
[2024-04-09 08:05] VITALS: BP 123/73; O2SAT 97
[2024-04-09] MEDS: ACETAMINOPHEN 325 MG TAB PO ONE (08:08)
[2024-04-09] MEDS: diphenhydrAMINE 25MG CAP PO ONE (08:08)
[2024-04-09] MEDS: methylPREDNISolone 125MG 2ML VIAL IV ONE (08:12)
[2024-04-09] MEDS: OCRELIZUMAB 600 MG in NS 500 ML IV ONE (08:42)
[2024-04-09 09:30] VITALS: BP 129/80; O2SAT 98
[2024-04-09 10:00] VITALS: BP 126/71; O2SAT 98
[2024-04-09 10:30] VITALS: BP 124/70; O2SAT 97
[2024-04-09 12:26] VITALS: BP 109/75; O2SAT 100
== END 2024-04-09 12:20 ==
LOC: M INFU 07:46
PROVIDERS: ATTEND Psychiatry & Neurology Neurology
DX: G35 Multiple sclerosis (principal)
CPT/HCPCS: 96365; 96366; 96367; J2350; J2919

== ENCOUNTER 2024-10-08 07:31 | Outpatient (CLI) | payer MEDICARE, MEDICAID ==
[2024-10-08] VITALS (7 sets, daily range): BP systolic 110–123; BP diastolic 63–77; O2SAT 96–100
[~2024-10-08] VITALS: Ht 180.3 cm; Wt 109.1 kg
[2024-10-08] MEDS: methylPREDNISolone 125MG 2ML VIAL IV ONE (07:52)
[2024-10-08] MEDS: ACETAMINOPHEN 325 MG TAB PO ONE (07:52)
[2024-10-08] MEDS: diphenhydrAMINE 25MG CAP PO ONE (07:52)
[2024-10-08] MEDS: OCRELIZUMAB 600 MG in NS 500 ML IV ONE (08:16)
== END 2024-10-08 11:55 ==
LOC: M INFU 07:31
PROVIDERS: ATTEND Psychiatry & Neurology Neurology
DX: G35 Multiple sclerosis (principal)
CPT/HCPCS: 96365; 96366; 96375; J2350; J2919